=== PATIENT | female | born 1995 | race Asian ===

== ENCOUNTER 2023-12-01 17:31 | Observation (INO) ==
--- NOTE | 2023-12-01 17:44 | Emergency Department Note ---
Impression & Plan SVT (supraventricular tachycardia), Hypokalemia, Hypomagnesemia, Fever, Elevated troponin I level, Pyelonephritis ED Provider Note NAME: EDY GRIFFIN AGE: 28 SEX: F : 1995 ARRIVES VIA: Ambulance INFORMANT: Patient, EMS ED PROVIDER(S): Dg Crowley DO CHIEF COMPLAINT: Palpitations HPI: The patient is a 28-year-old female who presented to the emergency department by ambulance for an evaluation of palpitations and shortness of breath. The patient had an acute onset of palpitations. She arrived via ambulance. She reportedly had a pulse rate in the 170s. She was treated with adenosine. She then started having a pulse rate in the 140s and felt significantly improved. At this time the patient states she still feels that her heart is racing but she denies having any chest pain. She denies having any lower extremity swelling or pain. She denies having any abdominal pain. The patient has not been ill recently. She has had no fever nausea vomiting or diarrhea. She has no history of SVT in the past. ROS: See above HPI for pertinent positives & negatives. A total of 10 systems reviewed and were otherwise negative. PAST MEDICAL HISTORY: See Below PAST SURGICAL HISTORY: See Below FAMILY HISTORY: See Below SOCIAL HISTORY: See Below HOME MEDICATIONS: See Below ALLERGIES: See Below VITALS: See Below PHYSICAL EXAMINATION: GENERAL: Patient is awake alert in no acute distress patient is resting comfortably and showing no signs of anxiety EYES: The conjunctivae are clear. The pupils are round and reactive. EARS, NOSE, MOUTH AND THROAT: The nose is without any evidence of any deformity. NECK: The neck is nontender and supple. RESPIRATORY: Normal respiratory effort is noted there is no evidence of wheezing rhonchi or rales CARDIOVASCULAR: Tachycardic but regular heart sounds were noted to auscultation. There is no definite murmur. GASTROINTESTINAL: The abdomen is soft. Abdomen is nontender. MUSCULOSKELETAL/EXTREMITIES: There is no evidence of gross deformity full range of motion is noted in the hips and shoulders. SKIN: There is no obvious evidence of any rash. There are no petechiae, pallor or cyanosis noted. NEUROLOGIC: Patient is awake alert and oriented x3 strength is symmetric patellar reflexes are 2+ bilaterally MEDICAL DECISION MAKING: The patient is a 28-year-old female who presented to the emergency department for an evaluation of shortness of breath and palpitations. The patient had an acute onset of palpitations. She called 911. She was found to be in a narrow complex tachycardia at 170 bpm. She did receive adenosine prior to arrival. The patient was found to be in sinus tachycardia in the emergency department. She did complain of difficulty breathing. She was found to have a fever in the emergency department. Further laboratory and radiographic studies were obtained. The patient was treated with multiple IV fluid boluses. She was treated with IV antibiotics as well. She was found to have a slight elevation in her liver function studies. She was also found to have an elevated troponin as well as D-dimer. For this reason CT angiography of the chest was obtained. Given the patient's findings I [facility] have agreed to evaluate the patient in the emergency department for further management and disposition. Triage Nursing notes reviewed. Prior medical records reviewed Vital Signs: reviewed and remarkable for tachycardia and hypotension. The patient was also febrile. Differential diagnosis: Premature contractions, electrolyte abnormality, cardiac dysrhythmia, thyroid dysfunction, pulmonary embolism, infection, gastrointestinal, as well as other pathologies. ER treatment provided: See below Diagnostics interpreted by me: ECG: EKG was obtained in the emergency department. My interpretation is sinus tachycardia at 138 bpm. No PVCs were noted. Incomplete right bundle branch block pattern was noted. No previous tracing was available. Prehospital EKG was obtained in the emergency department. My interpretation is narrow complex tachycardia at 167 bpm. There were no PVCs noted. Nonspecific ST segment depressions were noted. Cardiac Monitoring: An order was placed for continuous cardiac monitoring. The monitor shows a rate of 130 bpm with sinus tachycardia. Laboratory studies: As stated above and show below. Imaging studies: See below. Radiographic imaging was reviewed by myself Consultation(s): I discussed this case with Dr. Tam who [facility] Past Med/Surg History Problem List (Updated 12/02/23 @ 08:20 by Dg Crowley DO) Pyelonephritis (Acute) Severe sepsis Elevated troponin I level (Acute) Fever (Acute) Hypomagnesemia (Acute) Hypokalemia (Acute) SVT (supraventricular tachycardia) (Acute) Social History (Reviewed 12/01/23 @ 17:42 by NENO Bruce Smoking Status: Never smoker Hx Alcohol Use: Yes Alcohol type: wine Hx Substance Use: No Preferred Language: Italian Communication Ability: Effective Advertising Assistant Required: No Beliefs That Will Affect Care: None Current Living Situation: Other Current Living Situation Comment: lives w/ roomates Feels Safe at Home: Yes Safety Concerns: Feels Safe At This Time Assistive Devices: None Allergies Allergies Allergy/AdvReac Type Severity Reaction Status Date / Time shellfish derived Allergy Severe Anaphylaxis Verified 12/01/23 19:16 Home Meds Home Medications Medication Instructions Recorded Confirmed Zinc Liquid 1 dose PO DAILY 12/01/23 12/01/23 acetaminophen 500 mg tablet 500 mg PO Q6H PRN PAIN/FEVER 12/01/23 12/01/23 (Tylenol Extra Strength) ibuprofen 200 mg tablet 400 mg PO Q6H PRN PAIN/FEVER 12/01/23 12/01/23 vitamin B complex 1 tab PO DAILY 12/01/23 12/01/23 Results & Data (ED) Vital Signs Vital Signs - 24 hr 12/01/23 17:34 12/01/23 17:38 12/01/23 17:38 Temperature 38.3 C H Temperature Source Oral Pulse Rate 142 H Pulse Rate [Apical] Pulse Rate from SpO2 Sensor Pulse Rhythm Regular Pulse Rhythm [Apical] Pulse Strength Normal Pulse Strength [Apical] Respiratory Rate 22 Respiratory Effort / Characteristics Non-Labored Spontaneous Non-Labored Spontaneous Respiratory Depth Normal Normal Respiratory Pattern Regular Regular Blood Pressure 94/65 L 94/65 L Blood Pressure [Right Arm] Blood Pressure Mean 71 74 Blood Pressure Mean [Right Arm] Blood Pressure Position Sitting Blood Pressure Position [Right Arm] Pulse Oximetry 97 Oxygen Delivery Method Room Air Room Air Sepsis Recent Fever Within 48 Hours Yes Sepsis New/Unexplained Change in Mental Status No Sepsis Action Taken by Nursing Physician Notified 12/01/23 17:38 12/01/23 17:38 12/01/23 17:39 Temperature Temperature Source Pulse Rate 130 H Pulse Rate [Apical] 126 H Pulse Rate from SpO2 Sensor Pulse Rhythm Pulse Rhythm [Apical] Regular Pulse Strength Pulse Strength [Apical] Normal Respiratory Rate 22 Respiratory Effort / Characteristics Non-Labored Spontaneous Respiratory Depth Normal Respiratory Pattern Regular Blood Pressure Blood Pressure [Right Arm] Blood Pressure Mean Blood Pressure Mean [Right Arm] Blood Pressure Position Blood Pressure Position [Right Arm] Pulse Oximetry 97 97 Oxygen Delivery Method Room Air Room Air Sepsis Recent Fever Within 48 Hours Sepsis New/Unexplained Change in Mental Status Sepsis Action Taken by Nursing 12/01/23 17:51 12/01/23 17:54 12/01/23 17:54 Temperature Temperature Source Pulse Rate 126 H Pulse Rate [Apical] Pulse Rate from SpO2 Sensor 127 H Pulse Rhythm Pulse Rhythm [Apical] Pulse Strength Pulse Strength [Apical] Respiratory Rate 24 Respiratory Effort / Characteristics Respiratory Depth Respiratory Pattern Blood Pressure 94/59 L 94/59 L Blood Pressure [Right Arm] Blood Pressure Mean 62 62 Blood Pressure Mean [Right Arm] Blood Pressure Position Blood Pressure Position [Right Arm] Pulse Oximetry 99 Oxygen Delivery Method Sepsis Recent Fever Within 48 Hours Sepsis New/Unexplained Change in Mental Status Sepsis Action Taken by Nursing 12/01/23 17:54 12/01/23 17:54 12/01/23 17:57 Temperature Temperature Source Pulse Rate 129 H 123 H Pulse Rate [Apical] Pulse Rate from SpO2 Sensor 128 H 125 H Pulse Rhythm Pulse Rhythm [Apical] Pulse Strength Pulse Strength [Apical] Respiratory Rate 24 22 Respiratory Effort / Characteristics Respiratory Depth Respiratory Pattern Blood Pressure 94/59 L Blood Pressure [Right Arm] Blood Pressure Mean 62 Blood Pressure Mean [Right Arm] Blood Pressure Position Blood Pressure Position [Right Arm] Pulse Oximetry 99 98 Oxygen Delivery Method Sepsis Recent Fever Within 48 Hours Sepsis New/Unexplained Change in Mental Status Sepsis Action Taken by Nursing 12/01/23 18:00 12/01/23 18:00 12/01/23 18:00 Temperature Temperature Source Pulse Rate Pulse Rate [Apical] Pulse Rate from SpO2 Sensor Pulse Rhythm Pulse Rhythm [Apical] Pulse Strength Pulse Strength [Apical] Respiratory Rate Respiratory Effort / Characteristics Respiratory Depth Respiratory Pattern Blood Pressure 97/56 L 97/56 L 97/56 L Blood Pressure [Right Arm] Blood Pressure Mean 70 70 70 Blood Pressure Mean [Right Arm] Blood Pressure Position Blood Pressure Position [Right Arm] Pulse Oximetry Oxygen Delivery Method Sepsis Recent Fever Within 48 Hours Sepsis New/Unexplained Change in Mental Status Sepsis Action Taken by Nursing 12/01/23 18:06 12/01/23 18:09 12/01/23 18:10 Temperature Temperature Source Pulse Rate 120 H 119 H Pulse Rate [Apical] Pulse Rate from SpO2 Sensor 122 H 119 H Pulse Rhythm Pulse Rhythm [Apical] Pulse Strength Pulse Strength [Apical] Respiratory Rate 20 22 Respiratory Effort / Characteristics Respiratory Depth Respiratory Pattern Blood Pressure 90/58 L Blood Pressure [Right Arm] Blood Pressure Mean 66 Blood Pressure Mean [Right Arm] Blood Pressure Position Blood Pressure Position [Right Arm] Pulse Oximetry 98 97 Oxygen Delivery Method Sepsis Recent Fever Within 48 Hours Sepsis New/Unexplained Change in Mental Status Sepsis Action Taken by Nursing 12/01/23 18:10 12/01/23 18:10 12/01/23 18:16 Temperature Temperature Source Pulse Rate Pulse Rate [Apical] Pulse Rate from SpO2 Sensor Pulse Rhythm Pulse Rhythm [Apical] Pulse Strength Pulse Strength [Apical] Respiratory Rate Respiratory Effort / Characteristics Respiratory Depth Respiratory Pattern Blood Pressure 90/58 L 90/58 L 108/56 L Blood Pressure [Right Arm] Blood Pressure Mean 66 66 79 Blood Pressure Mean [Right Arm] Blood Pressure Position Blood Pressure Position [Right Arm] Pulse Oximetry Oxygen Delivery Method Sepsis Recent Fever Within 48 Hours Sepsis New/Unexplained Change in Mental Status Sepsis Action Taken by Nursing 12/01/23 18:18 12/01/23 18:27 12/01/23 18:50 Temperature Temperature Source Pulse Rate 132 H 117 H Pulse Rate [Apical] Pulse Rate from SpO2 Sensor 131 H Pulse Rhythm Pulse Rhythm [Apical] Pulse Strength Pulse Strength [Apical] Respiratory Rate 28 H 18 Respiratory Effort / Characteristics Respiratory Depth Respiratory Pattern Blood Pressure 102/68 Blood Pressure [Right Arm] Blood Pressure Mean 74 Blood Pressure Mean [Right Arm] Blood Pressure Position Blood Pressure Position [Right Arm] Pulse Oximetry 100 Oxygen Delivery Method Sepsis Recent Fever Within 48 Hours Sepsis New/Unexplained Change in Mental Status Sepsis Action Taken by Nursing 12/01/23 19:00 12/01/23 19:03 12/01/23 19:09 Temperature Temperature Source Pulse Rate 118 H 114 H Pulse Rate [Apical] Pulse Rate from SpO2 Sensor 119 H Pulse Rhythm Pulse Rhythm [Apical] Pulse Strength Pulse Strength [Apical] Respiratory Rate 23 24 Respiratory Effort / Characteristics Respiratory Depth Respiratory Pattern Blood Pressure 88/56 L Blood Pressure [Right Arm] Blood Pressure Mean 63 Blood Pressure Mean [Right Arm] Blood Pressure Position Blood Pressure Position [Right Arm] Pulse Oximetry 98 Oxygen Delivery Method Sepsis Recent Fever Within 48 Hours Sepsis New/Unexplained Change in Mental Status Sepsis Action Taken by Nursing 12/01/23 19:10 12/01/23 19:10 12/01/23 19:10 Temperature Temperature Source Pulse Rate Pulse Rate [Apical] Pulse Rate from SpO2 Sensor Pulse Rhythm Pulse Rhythm [Apical] Pulse Strength Pulse Strength [Apical] Respiratory Rate Respiratory Effort / Characteristics Respiratory Depth Respiratory Pattern Blood Pressure 109/61 109/61 109/61 Blood Pressure [Right Arm] Blood Pressure Mean 69 69 69 Blood Pressure Mean [Right Arm] Blood Pressure Position Blood Pressure Position [Right Arm] Pulse Oximetry Oxygen Delivery Method Sepsis Recent Fever Within 48 Hours Sepsis New/Unexplained Change in Mental Status Sepsis Action Taken by Nursing 12/01/23 19:12 12/01/23 19:18 12/01/23 19:20 Temperature Temperature Source Pulse Rate 129 H 114 H Pulse Rate [Apical] Pulse Rate from SpO2 Sensor Pulse Rhythm Pulse Rhythm [Apical] Pulse Strength Pulse Strength [Apical] Respiratory Rate 25 H 27 H Respiratory Effort / Characteristics Respiratory Depth Respiratory Pattern Blood Pressure 89/57 L Blood Pressure [Right Arm] Blood Pressure Mean 70 Blood Pressure Mean [Right Arm] Blood Pressure Position Blood Pressure Position [Right Arm] Pulse Oximetry Oxygen Delivery Method Sepsis Recent Fever Within 48 Hours Sepsis New/Unexplained Change in Mental Status Sepsis Action Taken by Nursing 12/01/23 19:21 12/01/23 19:25 12/01/23 20:26 Temperature 36.8 C Temperature Source Oral Pulse Rate 115 H Pulse Rate [Apical] 111 H Pulse Rate from SpO2 Sensor 114 H Pulse Rhythm Pulse Rhythm [Apical] Regular Pulse Strength Pulse Strength [Apical] Normal Respiratory Rate 24 18 Respiratory Effort / Characteristics Non-Labored Spontaneous Respiratory Depth Normal Respiratory Pattern Regular Blood Pressure Blood Pressure [Right Arm] 89/57 L Blood Pressure Mean Blood Pressure Mean [Right Arm] 67 Blood Pressure Position Blood Pressure Position [Right Arm] Sitting Pulse Oximetry 99 98 Oxygen Delivery Method Room Air Sepsis Recent Fever Within 48 Hours Sepsis New/Unexplained Change in Mental Status Sepsis Action Taken by Nursing 12/01/23 21:00 12/01/23 21:29 12/01/23 23:00 Temperature Temperature Source Pulse Rate 101 H Pulse Rate [Apical] 104 H 88 Pulse Rate from SpO2 Sensor Pulse Rhythm Pulse Rhythm [Apical] Regular Regular Pulse Strength Pulse Strength [Apical] Normal Normal Respiratory Rate 18 16 Respiratory Effort / Characteristics Non-Labored Spontaneous Non-Labored Spontaneous Respiratory Depth Normal Normal Respiratory Pattern Regular Regular Blood Pressure Blood Pressure [Right Arm] 96/67 L 82/58 L Blood Pressure Mean Blood Pressure Mean [Right Arm] 76 66 Blood Pressure Position Blood Pressure Position [Right Arm] Lying Pulse Oximetry 96 99 Oxygen Delivery Method Room Air Room Air Sepsis Recent Fever Within 48 Hours Sepsis New/Unexplained Change in Mental Status Sepsis Action Taken by Residential Medications Current Medication List: was personally reviewed by me Laboratory Data Attestation: I reviewed the patient's lab results. 12/02/23 05:47 12/02/23 05:47 Lab Results 12/01/23 12/01/23 12/01/23 Range/Units 17:40 17:56 18:12 WBC 9.21 (4.8-10.8) K/ul RBC 4.13 L (4.20-5.40) M/uL Hgb 12.3 (12.0-16.0) g/dl Hct 36.4 L (37.0-47.0) % MCV 88.1 (80.0-100.0) fL MCH 29.8 (25.0-34.0) pg MCHC 33.8 (32.0-36.0) g/dL RDW Std Deviation 42.3 (36.4-46.3) fL RDW Coeff of Katerina 13.1 (11.5-14.5) % Plt Count 238 (130-400) K/uL MPV 8.7 L (9.4-12.4) fL Immature Gran % (Auto) 0.7 % Neut % (Auto) 91.8 % Lymph % (Auto) 6.3 % Wirt % (Auto) 0.8 % Eos % (Auto) 0.1 % Baso % (Auto) 0.3 % Neut # (Auto) 8.46 H (1.40-6.50) K/uL Lymph # (Auto) 0.58 L (1.20-3.40) K/uL Wirt # (Auto) 0.07 L (0.11-0.59) K/uL Eos # (Auto) 0.01 (0.00-0.50) K/uL Baso # (Auto) 0.03 (0.00-0.20) K/uL Immature Gran # (Auto) 0.06 (0.01-0.20) K/uL Toxic Vacuolation 2+ PT 11.0 (9.0-12.0) Seconds INR 1.0 (0.9-1.1) APTT 23 (21-31) Seconds PTT Ratio 0.9 D-Dimer 3870 H* (0-500) ug/L FEU Sodium 132 L (136-145) mmol/L Potassium 3.4 L (3.5-5.1) mmol/L Chloride 103 (98-107) mmol/L Carbon Dioxide 20 L (21-32) mmol/L Anion Gap 9 (3-11) BUN 14 (6-23) mg/dl Creatinine 0.80 (0.6-1.2) mg/dl Est Cr Clr Drug Dosing 81.3 ml/min Est GFR ( Amer) 114.7 ml/min Est GFR (Non-Af Amer) 98.9 ml/min BUN/Creatinine Ratio 17.5 (10-20) Glucose 131 H (70-99(Fasting)) mg/dl Estimat Average Glucose mg/dl Hemoglobin A1c (4.5-5.6) % Lactate (0.4-2.0) mmol/L Calcium 8.9 (8.6-10.3) mg/dl Magnesium 1.4 L (1.7-2.4) mg/dl Total Bilirubin 0.5 (0.2-1.0) mg/dl AST 180 H (13-39) U/L ALT 100 H (7-52) U/L Alkaline Phosphatase 107 H (34-104) U/L Total Creatine Kinase 62 (26-192) U/L Troponin I High Sens 65.3 H* (0-14) pg/ml C-Reactive Protein 3.14 H (0-0.5) mg/dl Total Protein 7.0 (6.0-8.3) gm/dl Albumin 3.9 (3.4-5.0) gm/dl Globulin 3.1 (2.5-4.0) gm/dl Albumin/Globulin Ratio 1.3 (0.9-2) Lipase 45 (11-82) U/L Procalcitonin 2.51 H (0-0.5) ng/ml TSH 0.961 (0.300-4.500) uIu/ml HCG, Qual Negative (Negative) Urine Color Yellow Urine Appearance Turbid A (Clear) Urine pH 5.5 (4.5-7.5) Ur Specific [place] 1.014 (1.000-1.030) Urine Protein 1+ H (Negative) Urine Glucose (UA) Negative (Negative) Urine Ketones Trace H (Negative) Urine Blood Negative (Negative) Urine Nitrite Positive A (Negative) Urine Bilirubin Negative (Negative) Urine Urobilinogen Negative (Negative) Ur Leukocyte Esterase 3+ H (Negative) Urine WBC (Auto) >50 H (0-5) /hpf Urine RBC (Auto) 0-2 (0-2) /hpf U Hyaline Cast (Auto) 3-5 H (0-2) /lpf U Epithel Cells (Auto) >20 H (0-2) /hpf Urine Bacteria (Auto) 4+ H (None Seen) Adenovirus (PCR) Not Detected (NotDetected) Anaplasma Smear See Comment Babesia Smear See Comment B. pertussis DNA (PCR) Not Detected (NotDetected) B.parapertussis DNA PCR Not Detected (NotDetected) Lyme Disease Screen Negative (Negative) C. pneumoniae DNA (PCR) Not Detected (NotDetected) Coronavirus OC43 (PCR) Not Detected (NotDetected) Coronavirus HKU1 (PCR) Not Detected (NotDetected) Coronavirus 229E (PCR) Not Detected (NotDetected) SARS-CoV-2 (PCR) Not Detected (NotDetected) Coronavirus NL63 (PCR) Not Detected (NotDetected) Enterobacterales (PCR) (NotDetected) E. coli (PCR) (NotDetected) Human Metapneumovir PCR Not Detected (NotDetected) Influenza Type A (PCR) Not Detected (NotDetected) Influenza Type B (PCR) Not Detected (NotDetected) M. pneumoniae (PCR) Not Detected (NotDetected) Parainfluenza 1 (PCR) Not Detected (NotDetected) Parainfluenza 2 (PCR) Not Detected (NotDetected) Parainfluenza 3 (PCR) Not Detected (NotDetected) Parainfluenza 4 (PCR) Not Detected (NotDetected) RSV (PCR) Not Detected (NotDetected) Entero/Rhino (PCR) Not Detected (NotDetected) mcr-1 Colistin Res Gene PCR (NotDetected) blaIMP Car res Gene PCR (NotDetected) KPC-Carbap Res Gene PCR (NotDetected) blaNDM Car Res Gene PCR (NotDetected) OXA-48 Carbapenem Resis Gene (PCR) (NotDetected) blaVIM Car Res Gene PCR (NotDetected) CTX-M Gene Resistance (PCR) (NotDetected) Bld Cult ID Panel PCR (NotDetected) 12/01/23 12/01/23 12/01/23 Range/Units 19:04 19:10 20:57 WBC (4.8-10.8) K/ul RBC (4.20-5.40) M/uL Hgb (12.0-16.0) g/dl Hct (37.0-47.0) % MCV (80.0-100.0) fL MCH (25.0-34.0) pg MCHC (32.0-36.0) g/dL RDW Std Deviation (36.4-46.3) fL RDW Coeff of Katerina (11.5-14.5) % Plt Count (130-400) K/uL MPV (9.4-12.4) fL Immature Gran % (Auto) % Neut % (Auto) % Lymph % (Auto) % Wirt % (Auto) % Eos % (Auto) % Baso % (Auto) % Neut # (Auto) (1.40-6.50) K/uL Lymph # (Auto) (1.20-3.40) K/uL Wirt # (Auto) (0.11-0.59) K/uL Eos # (Auto) (0.00-0.50) K/uL Baso # (Auto) (0.00-0.20) K/uL Immature Gran # (Auto) (0.01-0.20) K/uL Toxic Vacuolation PT (9.0-12.0) Seconds INR (0.9-1.1) APTT (21-31) Seconds PTT Ratio D-Dimer (0-500) ug/L FEU Sodium (136-145) mmol/L Potassium (3.5-5.1) mmol/L Chloride (98-107) mmol/L Carbon Dioxide (21-32) mmol/L Anion Gap (3-11) BUN (6-23) mg/dl Creatinine (0.6-1.2) mg/dl Est Cr Clr Drug Dosing ml/min Est GFR ( Amer) ml/min Est GFR (Non-Af Amer) ml/min BUN/Creatinine Ratio (10-20) Glucose (70-99(Fasting)) mg/dl Estimat Average Glucose 117 mg/dl Hemoglobin A1c 5.7 H (4.5-5.6) % Lactate 3.0 H* 1.8 (0.4-2.0) mmol/L Calcium (8.6-10.3) mg/dl Magnesium (1.7-2.4) mg/dl Total Bilirubin (0.2-1.0) mg/dl AST (13-39) U/L ALT (7-52) U/L Alkaline Phosphatase (34-104) U/L Total Creatine Kinase (26-192) U/L Troponin I High Sens 131.9 H* D (0-14) pg/ml C-Reactive Protein (0-0.5) mg/dl Total Protein (6.0-8.3) gm/dl Albumin (3.4-5.0) gm/dl Globulin (2.5-4.0) gm/dl Albumin/Globulin Ratio (0.9-2) Lipase (11-82) U/L Procalcitonin (0-0.5) ng/ml TSH (0.300-4.500) uIu/ml HCG, Qual (Negative) Urine Color Urine Appearance (Clear) Urine pH (4.5-7.5) Ur Specific [place] (1.000-1.030) Urine Protein (Negative) Urine Glucose (UA) (Negative) Urine Ketones (Negative) Urine Blood (Negative) Urine Nitrite (Negative) Urine Bilirubin (Negative) Urine Urobilinogen (Negative) Ur Leukocyte Esterase (Negative) Urine WBC (Auto) (0-5) /hpf Urine RBC (Auto) (0-2) /hpf U Hyaline Cast (Auto) (0-2) /lpf U Epithel Cells (Auto) (0-2) /hpf Urine Bacteria (Auto) (None Seen) Adenovirus (PCR) (NotDetected) Anaplasma Smear Babesia Smear B. pertussis DNA (PCR) (NotDetected) B.parapertussis DNA PCR (NotDetected) Lyme Disease Screen (Negative) C. pneumoniae DNA (PCR) (NotDetected) Coronavirus OC43 (PCR) (NotDetected) Coronavirus HKU1 (PCR) (NotDetected) Coronavirus 229E (PCR) (NotDetected) SARS-CoV-2 (PCR) (NotDetected) Coronavirus NL63 (PCR) (NotDetected) Enterobacterales (PCR) DETECTED A (NotDetected) E. coli (PCR) DETECTED A (NotDetected) Human Metapneumovir PCR (NotDetected) Influenza Type A (PCR) (NotDetected) Influenza Type B (PCR) (NotDetected) M. pneumoniae (PCR) (NotDetected) Parainfluenza 1 (PCR) (NotDetected) Parainfluenza 2 (PCR) (NotDetected) Parainfluenza 3 (PCR) (NotDetected) Parainfluenza 4 (PCR) (NotDetected) RSV (PCR) (NotDetected) Entero/Rhino (PCR) (NotDetected) mcr-1 Colistin Res Gene PCR Not Detected (NotDetected) blaIMP Car res Gene PCR Not Detected (NotDetected) KPC-Carbap Res Gene PCR Not Detected (NotDetected) blaNDM Car Res Gene PCR Not Detected (NotDetected) OXA-48 Carbapenem Resis Gene (PCR) Not Detected (NotDetected) blaVIM Car Res Gene PCR Not Detected (NotDetected) CTX-M Gene Resistance (PCR) Not Detected (NotDetected) Bld Cult ID Panel PCR See PCR Comment (NotDetected) Administered Medications Ciprofloxacin (Cipro / D5w) 400 mg in 200 mls @ 100 mls/hr IV Q12H MARZENA; Protocol Stop: 12/12/23 04:59 Last Admin: 12/02/23 05:44 Dose: 100 mls/hr Documented By: MMИван Potassium Chloride/Sodium Chloride (Normal Saline W/20 Meq Kcl) 20 meq in 1,000 mls @ 150 mls/hr IV .Q6H40M ONE; Protocol Stop: 12/02/23 12:39 Last Admin: 12/02/23 05:34 Dose: 100 mls/hr Documented By: BEVERLY Ketorolac Tromethamine (Ketorolac Tromethamine 15 Mg/Ml Vial) 15 mg IV Q6H PRN PRN Reason: Pain Stop: 12/06/23 22:20 Last Admin: 12/02/23 05:39 Dose: 15 mg Documented By: MMG Discontinued Medications Acetaminophen (Acetaminophen 500 Mg Tab) 500 mg PO NOW STA Stop: 12/01/23 19:21 Last Admin: 12/01/23 19:38 Dose: 500 mg Documented By: SNS Sodium Chloride (Nss) 1,000 mls @ 999 mls/hr IV .Q1H1M STA Stop: 12/01/23 18:38 Last Infusion: 12/01/23 18:48 Dose: Infused Documented By: Admin: 12/01/23 17:47 Dose: 999 mls/hr Documented By: SNS Magnesium Sulfate/Dextrose (Magnesium Sulfate / D5w) 1 gm in 100 mls @ 100 mls/hr IV NOW STA Stop: 12/01/23 19:11 Last Infusion: 12/01/23 19:28 Dose: Infused Documented By: Admin: 12/01/23 18:23 Dose: 100 mls/hr Documented By: SNS Sodium Chloride (Nss) 1,000 mls @ 999 mls/hr IV .Q1H1M ONE Stop: 12/01/23 19:31 Last Infusion: 12/01/23 19:51 Dose: Infused Documented By: Admin: 12/01/23 18:47 Dose: 999 mls/hr Documented By: SNS Ceftriaxone Sodium (Rocephin) 2,000 mg in 50 mls @ 100 mls/hr IV NOW STA Stop: 12/01/23 19:24 Last Infusion: 12/01/23 19:51 Dose: Infused Documented By: Admin: 12/01/23 19:16 Dose: 100 mls/hr Documented By: SNS Magnesium Sulfate/Dextrose (Magnesium Sulfate / D5w) 1 gm in 100 mls @ 50 mls/hr IV ONE ONE Stop: 12/01/23 21:59 Last Infusion: 12/01/23 22:11 Dose: Infused Documented By: Admin: 12/01/23 20:08 Dose: 50 mls/hr Documented By: SNS Potassium Chloride/Sodium Chloride (Normal Saline W/20 Meq Kcl) 20 meq in 1,000 mls @ 500 mls/hr IV .Q2H ONE; Protocol Stop: 12/01/23 21:59 Last Infusion: 12/01/23 22:11 Dose: Infused Documented By: Admin: 12/01/23 20:06 Dose: 500 mls/hr Documented By: SNS Piperacillin Sod/Tazobactam Sod (Zosyn) 4.5 gm in 100 mls @ 200 mls/hr IV NOW ONE Stop: 12/01/23 20:44 Last Infusion: 12/01/23 21:37 Dose: Infused Documented By: Admin: 12/01/23 21:07 Dose: 200 mls/hr Documented By: COOPER Potassium Chloride/Sodium Chloride (Normal Saline W/20 Meq Kcl) 20 meq in 1,000 mls @ 100 mls/hr IV .Q10H ONE; Protocol Stop: 12/02/23 05:59 Last Admin: 12/01/23 22:06 Dose: 100 mls/hr Documented By: COOPER Ioversol (Optiray 320 125ml) 118 ml IV ONCE ONE Stop: 12/01/23 18:38 Last Admin: 12/01/23 18:38 Dose: 118 ml Documented By: ILA Ketorolac Tromethamine (Ketorolac Tromethamine 15 Mg/Ml Vial) 10 mg IV NOW ONE Stop: 12/01/23 18:29 Last Admin: 12/01/23 18:30 Dose: 10 mg Documented By: COOPER Ketorolac Tromethamine (Ketorolac Tromethamine 15 Mg/Ml Vial) 15 mg IV NOW ONE Stop: 12/02/23 05:51 Last Admin: 12/02/23 06:03 Dose: Not Given Documented By: BEVERLY Melatonin (Melatonin 3 Mg Tab) 3 mg PO HS PRN PRN Reason: Sleep Stop: 01/01/24 01:46 Last Admin: 12/02/23 02:16 Dose: 3 mg Documented By: BEVERLY Potassium Chloride (Potassium Chloride 10 Meq Tabcr) 10 meq PO NOW STA Stop: 12/01/23 18:12 Last Admin: 12/01/23 18:23 Dose: 10 meq Documented By: COOPER Potassium Chloride (Potassium Chloride Crtab 20 Meq Tabcr) 40 meq PO NOW STA Stop: 12/01/23 19:27 Last Admin: 12/01/23 20:05 Dose: 40 meq Documented By: COOPER Imaging Data Attestation: I personally reviewed and interpreted this imaging study as follows: My Impression: CT angiography of the chest was obtained in the emergency department. My interpretation is no free air or definite infiltrate, final report below Radiologist's Impression: Abdomen/Pelvis CT 12/01/23 19:59 Exam(s): CT ABDOMEN + PELVIS Without Contrast EXAM: CT Abdomen and Pelvis Without Intravenous Contrast CLINICAL HISTORY: Pain. TECHNIQUE: Axial computed tomography images of the abdomen and pelvis without intravenous contrast. CTDI is 12.41 mGy and DLP is 594 mGy-cm. Automated exposure control was utilized for the study. A dose lowering technique was utilized adhering to the principles of ALARA. COMPARISON: No relevant prior studies available. FINDINGS: Lung bases: Unremarkable. No mass. No consolidation. ABDOMEN: Liver: Unremarkable. Gallbladder and bile ducts: The gallbladder is decompressed. No calcified stones. No ductal dilation. Pancreas: Unremarkable. No ductal dilation. Spleen: Unremarkable. No splenomegaly. Adrenals: Unremarkable. No mass. Kidneys and ureters: There are persistent nephrograms of the right kidney which demonstrates mild hydronephrosis. Left kidney is unremarkable. Stomach and bowel: Unremarkable. No obstruction. No mucosal thickening. PELVIS: Appendix: No findings to suggest acute appendicitis. Bladder: Unremarkable. No stones. Reproductive: Unremarkable as visualized. ABDOMEN and PELVIS: Intraperitoneal space: Unremarkable. No free air. No significant fluid collection. Bones/joints: No acute fracture. No dislocation. Soft tissues: Unremarkable. Vasculature: Unremarkable. No abdominal aortic aneurysm. Lymph nodes: Unremarkable. No enlarged lymph nodes. IMPRESSION: There are persistent nephrograms of the right kidney which demonstrates mild hydronephrosis. This is concerning for acute pyelonephritis. Electronically signed by: Jennifer Cantor MD 12/02/23 00:20 AM Discharge Plan Visit Data Chief Complaint: Shortness of Breath/Dyspnea Stated Complaint: SOB ED Provider: Dg Crowley Discharge Problem: SVT (supraventricular tachycardia), Hypokalemia, Hypomagnesemia, Fever, Elevated troponin I level, Pyelonephritis Patient Disposition: Admitted As Inpatient Discharge Instructions Interventions: ED Discharge Assessment Last Done: 12/02/23 01:07 Discharge Problem: Fever Qualifiers: Fever type: unspecified Qualified Code(s): R50.9 - Fever, unspecified
[2023-12-01] MEDS: SODIUM CHLORIDE 0.9% 1,000 ML IV STA (17:47)
[2023-12-01 17:54] LABS: Hematocrit (blood only) 36.4 % (37.0-47.0); Hemoglobin 12.3 g/dl (12.0-16.0); Mean Corpuscular Hemoglobin 29.8 pg (25.0-34.0); Mean Corpuscular Hgb Conc 33.8 g/dL (32.0-36.0); Mean Corpuscular Volume 88.1 fL (80.0-100.0); Mean Platelet Volume 8.7 fL (9.4-12.4); Platelet Count 238 K/uL (130-400); RDW Coefficient of Variation 13.1 % (11.5-14.5); RDW Standard Deviation 42.3 fL (36.4-46.3); Red Blood Count 4.13 M/uL (4.20-5.40); White Blood Count 9.21 K/ul (4.8-10.8)
[2023-12-01 18:10] LABS: Albumin Globulin Ratio 1.3 (0.9-2); Albumin Level 3.9 gm/dl (3.4-5.0); BUN Creatinine Ratio 17.5 (10-20); Bilirubin,Total 0.5 mg/dl (0.2-1.0); Calcium 8.9 mg/dl (8.6-10.3); Creatinine Clr Calc Pharmacy 81.3 ml/min; Est GFR (African American) 114.7 ml/min; Est GFR (Non-African American) 98.9 ml/min; Globulin 3.1 gm/dl (2.5-4.0); Magnesium 1.4 mg/dl (1.7-2.4); Potassium 3.4 mmol/L (3.5-5.1)
[2023-12-01 18:12] LABS: Pregnancy Test, Serum Negative (Negative)
[2023-12-01 18:13] LABS: Basophils # (auto) 0.03 K/uL (0.00-0.20); Basophils % (auto) 0.3 %; Eosinophils # (auto) 0.01 K/uL (0.00-0.50); Eosinophils % (auto) 0.1 %; Immature Granulocytes # (auto) 0.06 K/uL (0.01-0.20); Immature Granulocytes % (auto) 0.7 %; Lymphocytes # (auto) 0.58 K/uL (1.20-3.40); Lymphocytes % (auto) 6.3 %; Monocytes # (auto) 0.07 K/uL (0.11-0.59); Monocytes % (auto) 0.8 %; Neutrophils # (auto) 8.46 K/uL (1.40-6.50); Neutrophils % (auto) 91.8 %; Toxic Vacuolation 2+
[2023-12-01] MEDS: MAGNESIUM SULFATE / D5W 1 GM/100 ML BAG IV STA (18:23)
[2023-12-01] MEDS: POTASSIUM CHLORIDE 10 MEQ TABCR PO STA (18:23)
[2023-12-01 18:24] LABS: Partial Thromboplastin Ratio 0.9; Partial Thromboplastin Time 23 Seconds (21-31)
[2023-12-01 18:27] LABS: D Dimer 3870 ug/L FEU (0-500)
[2023-12-01 18:28] LABS: Thyroid Stimulating Hormone 0.961 uIu/ml (0.300-4.500)
[2023-12-01] MEDS: KETOROLAC TROMETHAMINE 15 MG/ML VIAL IV ONE (18:30)
[2023-12-01 18:31] LABS: Troponin I High Sensitivity 65.3 pg/ml (0-14)
[2023-12-01] MEDS: OPTIRAY 320 125ml IV ONE (18:38)
[2023-12-01] MEDS: SODIUM CHLORIDE 0.9% 1,000 ML IV ONE (18:47)
[2023-12-01 19:08] LABS: Appearance Urine Turbid (Clear); Bacteria Urine Automated 4+ (None Seen); Bilirubin Urine Negative (Negative); Blood Urine Negative (Negative); Color Urine Yellow; Epithelial Cell Urine Auto >20 /hpf (0-2); Glucose Urine UA Negative (Negative); Ketones Urine Trace (Negative); Leukocyte Esterase Urine 3+ (Negative); Nitrite Urine Positive (Negative); Protein Urine 1+ (Negative); RBC Urine Automated 0-2 /hpf (0-2); Specific Gravity Urine 1.014 (1.000-1.030); Urobilinogen Urine Negative (Negative); WBC Urine Automated >50 /hpf (0-5); pH Urine 5.5 (4.5-7.5)
--- NOTE | 2023-12-01 19:12 | CT Scan Report ---
CT angio chest PE protocol CLINICAL HISTORY: PE TECHNIQUE: Multidetector row helical CT of the chest was performed with angiographic protocol. Soto l and sagittal reformations were obtained. Coronal and sagittal MIPS were obtained from the axial jackson a set and were submitted for review. Automated dose lowering techniques and/or adjustment according to patient size were utilized for this exam. CT DOSE: 396.92 mGy.cm Comparison: None available at the time of this dictation. FINDINGS: Lungs and pleura: There is a 3 mm nodule in the right upper lobe (series 4 image 80). Heart and pericardium: Heart size is normal. No pericardial effusion. Vessels: Evaluation for pulmonary embolism is limited due to suboptimal contrast timing. No evidence of central, lobar, or segmental embolus. Mediastinum and reggie: Unremarkable. Chest wall and lower neck: Unremarkable. Abdomen: Unremarkable. Bones: Unremarkable. IMPRESSION: 1. No acute abnormality and in particular no evidence of pulmonary embolus. 2. Small pulmonary nodule in the right upper lobe. According to Fleischner criteria, no follow-up is required in low risk patients, in high-risk patients, a 12 month follow-up CT can be optionally perf ormed. ACT 112: Negative or not required by law. Electronically signed by: Sami Perez M.D. 12/01/2023 7:10 PM
[2023-12-01] MEDS: cefTRIAXone SODIUM 2,000 MG/50 ML BAG IV STA (19:16)
[2023-12-01 19:18] LABS: Procalcitonin 2.51 ng/ml (0-0.5)
[2023-12-01] MEDS: ACETAMINOPHEN 500 MG TAB PO STA (19:38)
[2023-12-01 19:43] LABS: Lyme Screen Rflx Confirmation Negative (Negative)
[2023-12-01] MEDS ORDERED: PIPERACILLIN/TAZOBACTAM 4.5 GM in DEXTROSE 5% MINI-B 100 ML IV ONE (19:59)
[2023-12-01] MEDS ORDERED: oxyCODONE HCL IR 5 MG TAB (IMMEDIATE RELEASE) PO PRN (20:03)
[2023-12-01] MEDS ORDERED: LORazepam 0.5 MG TAB PO PRN (20:03)
[2023-12-01] MEDS ORDERED: PROMETHAZINE HCL 6.25 MG in SODIUM CHLORIDE 0.9% 50 ML IV PRN (20:03)
[2023-12-01] MEDS: POTASSIUM CHLORIDE CRTAB 20 MEQ TABCR PO STA (20:05)
[2023-12-01] MEDS: NSS + 20MEQ KCL 20 MEQ/1,000 ML BAG IV ONE ×2 (20:06→22:06)
[2023-12-01] MEDS: MAGNESIUM SULFATE / D5W 1 GM/100 ML BAG IV ONE (20:08)
[2023-12-01 20:11] LABS: Adenovirus PCR Not Detected (NotDetected); Bordetella parapertussis PCR Not Detected (NotDetected); Bordetella pertussis PCR Not Detected (NotDetected); Chlamydia pneumoniae PCR Not Detected (NotDetected); Coronavirus 229E PCR Not Detected (NotDetected); Coronavirus CoV-2 (COVID19)PCR Not Detected (NotDetected); Coronavirus HKU1 PCR Not Detected (NotDetected); Coronavirus NL63 PCR Not Detected (NotDetected); Coronavirus OC43PCR Not Detected (NotDetected); Human Metapneumovirus PCR Not Detected (NotDetected); Influenza A PCR Not Detected (NotDetected); Influenza B PCR Not Detected (NotDetected); Mycoplasma pneumoniae PCR Not Detected (NotDetected); Parainfluenza Virus 1 PCR Not Detected (NotDetected); Parainfluenza Virus 2 PCR Not Detected (NotDetected); Parainfluenza Virus 3 PCR Not Detected (NotDetected); Parainfluenza Virus 4 PCR Not Detected (NotDetected); Respiratory Syncytial VirusPCR Not Detected (NotDetected); Rhinovirus/Enterovirus PCR Not Detected (NotDetected)
[2023-12-01] MEDS ORDERED: POTASSIUM CHLORIDE CRTAB 20 MEQ TABCR PO ONE (21:00)
[2023-12-01] MEDS: PIPERACILLIN/TAZOBACTAM 4.5 GM/100 ML BAG IV ONE (21:07)
[2023-12-01 21:35] LABS: C Reactive Protein 3.14 mg/dl (0-0.5)
[2023-12-01 21:52] LABS: Estimated Average Glucose 117 mg/dl; Hemoglobin A1C 5.7 % (4.5-5.6)
--- NOTE | 2023-12-01 22:43 | History & Physical Report ---
Date of Service December 01, 2023 History of Present Illness Chief Complaint: Palpitations, shortness of breath Primary Care Provider: NO PCP History obtained from patient and records. No significant medical history. Patient experienced right-sided flank discomfort today followed by dysuria. Dizziness described as lightheadedness. Palpitations with SOB. Denies chest pain or cough symptoms. EMS called to patient's home. Patient noted to be in SVT, heart rate 170s. Heart rate improved to 140s after adenosine administration. Patient brought to the ER for evaluation. Ceftriaxone administered at the ER. Medical History as above Surgical History : Family History : Personal/Social history : Allergies Allergy/AdvReac Type Severity Reaction Status Date / Time shellfish derived Allergy Severe Anaphylaxis Verified 12/01/23 19:16 Home Medications Medication Instructions Recorded Confirmed Type Zinc Liquid 1 dose PO DAILY 12/01/23 12/01/23 History acetaminophen 500 mg tablet 500 mg PO Q6H PRN PAIN/FEVER 12/01/23 12/01/23 History (Tylenol Extra Strength) ibuprofen 200 mg tablet 400 mg PO Q6H PRN PAIN/FEVER 12/01/23 12/01/23 History vitamin B complex 1 tab PO DAILY 12/01/23 12/01/23 History Past Med/Surg History Problem List (Updated 12/01/23 @ 19:21 by Dg Crowley DO) UTI (urinary tract infection) (Acute) Elevated troponin I level (Acute) Fever (Acute) Hypomagnesemia (Acute) Hypokalemia (Acute) SVT (supraventricular tachycardia) (Acute) Social History Smoking Status: Never smoker Preferred Language: [place] Feels Safe at Home: Yes Results & Data Results & Data Vital Signs (Past 12 Hours) Vital Signs Temp Pulse Pulse Resp BP BP Pulse Ox 12/01/23 21:29 101 H 12/01/23 21:00 104 H 18 96/67 L 96 12/01/23 20:26 36.8 C 12/01/23 19:25 111 H 18 89/57 L 98 12/01/23 19:21 115 H 24 99 12/01/23 19:20 89/57 L 12/01/23 19:18 114 H 27 H 12/01/23 19:12 129 H 25 H 12/01/23 19:10 109/61 12/01/23 19:10 109/61 12/01/23 19:10 109/61 12/01/23 19:09 114 H 24 12/01/23 19:03 118 H 23 98 12/01/23 19:00 88/56 L 12/01/23 18:50 102/68 12/01/23 18:27 117 H 18 12/01/23 18:18 132 H 28 H 100 12/01/23 18:16 108/56 L 12/01/23 18:10 90/58 L 12/01/23 18:10 90/58 L 12/01/23 18:10 90/58 L 12/01/23 18:09 119 H 22 97 12/01/23 18:06 120 H 20 98 12/01/23 18:00 97/56 L 12/01/23 18:00 97/56 L 12/01/23 18:00 97/56 L 12/01/23 17:57 123 H 22 98 12/01/23 17:54 129 H 24 99 12/01/23 17:54 94/59 L 12/01/23 17:54 94/59 L 12/01/23 17:54 94/59 L 12/01/23 17:51 126 H 24 99 12/01/23 17:39 130 H 12/01/23 17:38 126 H 22 97 12/01/23 17:38 97 12/01/23 17:38 12/01/23 17:38 38.3 C H 142 H 22 94/65 L 97 12/01/23 17:34 94/65 L O2 Del Method 12/01/23 21:29 12/01/23 21:00 Room Air 12/01/23 20:26 12/01/23 19:25 Room Air 12/01/23 19:21 12/01/23 19:20 12/01/23 19:18 12/01/23 19:12 12/01/23 19:10 12/01/23 19:10 12/01/23 19:10 12/01/23 19:09 12/01/23 19:03 12/01/23 19:00 12/01/23 18:50 12/01/23 18:27 12/01/23 18:18 12/01/23 18:16 12/01/23 18:10 12/01/23 18:10 12/01/23 18:10 12/01/23 18:09 12/01/23 18:06 12/01/23 18:00 12/01/23 18:00 12/01/23 18:00 12/01/23 17:57 12/01/23 17:54 12/01/23 17:54 12/01/23 17:54 12/01/23 17:54 12/01/23 17:51 12/01/23 17:39 12/01/23 17:38 Room Air 12/01/23 17:38 Room Air 12/01/23 17:38 Room Air 12/01/23 17:38 Room Air 12/01/23 17:34 Laboratory Results Laboratory Results WBC 9.21 K/ul (4.8-10.8) 12/01/23 17:40 RBC 4.13 M/uL (4.20-5.40) L 12/01/23 17:40 Hgb 12.3 g/dl (12.0-16.0) 12/01/23 17:40 Hct 36.4 % (37.0-47.0) L 12/01/23 17:40 MCV 88.1 fL (80.0-100.0) 12/01/23 17:40 MCH 29.8 pg (25.0-34.0) 12/01/23 17:40 MCHC 33.8 g/dL (32.0-36.0) 12/01/23 17:40 RDW Std Deviation 42.3 fL (36.4-46.3) 12/01/23 17:40 RDW Coeff of Katerina 13.1 % (11.5-14.5) 12/01/23 17:40 Plt Count 238 K/uL (130-400) 12/01/23 17:40 MPV 8.7 fL (9.4-12.4) L 12/01/23 17:40 Immature Gran % (Auto) 0.7 % 12/01/23 17:40 Neut % (Auto) 91.8 % 12/01/23 17:40 Lymph % (Auto) 6.3 % 12/01/23 17:40 [place] % (Auto) 0.8 % 12/01/23 17:40 Eos % (Auto) 0.1 % 12/01/23 17:40 Baso % (Auto) 0.3 % 12/01/23 17:40 Neut # (Auto) 8.46 K/uL (1.40-6.50) H 12/01/23 17:40 Lymph # (Auto) 0.58 K/uL (1.20-3.40) L 12/01/23 17:40 [place] # (Auto) 0.07 K/uL (0.11-0.59) L 12/01/23 17:40 Eos # (Auto) 0.01 K/uL (0.00-0.50) 12/01/23 17:40 Baso # (Auto) 0.03 K/uL (0.00-0.20) 12/01/23 17:40 Immature Gran # (Auto) 0.06 K/uL (0.01-0.20) 12/01/23 17:40 Toxic Vacuolation 2+ 12/01/23 17:40 PT 11.0 Seconds (9.0-12.0) 12/01/23 17:40 INR 1.0 (0.9-1.1) 12/01/23 17:40 APTT 23 Seconds (21-31) 12/01/23 17:40 PTT Ratio 0.9 12/01/23 17:40 D-Dimer 3870 ug/L FEU (0-500) H* 12/01/23 17:40 Sodium 132 mmol/L (136-145) L 12/01/23 17:40 Potassium 3.4 mmol/L (3.5-5.1) L 12/01/23 17:40 Chloride 103 mmol/L (98-107) 12/01/23 17:40 Carbon Dioxide 20 mmol/L (21-32) L 12/01/23 17:40 Anion Gap 9 (3-11) 12/01/23 17:40 BUN 14 mg/dl (6-23) 12/01/23 17:40 Creatinine 0.80 mg/dl (0.6-1.2) 12/01/23 17:40 Est Cr Clr Drug Dosing 81.3 ml/min 12/01/23 17:40 Est GFR ( Amer) 114.7 ml/min 12/01/23 17:40 Est GFR (Non-Af Amer) 98.9 ml/min 12/01/23 17:40 BUN/Creatinine Ratio 17.5 (10-20) 12/01/23 17:40 Glucose 131 mg/dl (70-99(Fasting)) H 12/01/23 17:40 Estimat Average Glucose 117 mg/dl 12/01/23 19:04 Hemoglobin A1c 5.7 % (4.5-5.6) H 12/01/23 19:04 Lactate 1.8 mmol/L (0.4-2.0) 12/01/23 20:57 Calcium 8.9 mg/dl (8.6-10.3) 12/01/23 17:40 Magnesium 1.4 mg/dl (1.7-2.4) L 12/01/23 17:40 Total Bilirubin 0.5 mg/dl (0.2-1.0) 12/01/23 17:40 AST 180 U/L (13-39) H 12/01/23 17:40 ALT 100 U/L (7-52) H 12/01/23 17:40 Alkaline Phosphatase 107 U/L (34-104) H 12/01/23 17:40 Total Creatine Kinase 62 U/L (26-192) 12/01/23 17:40 Troponin I High Sens 131.9 pg/ml (0-14) H* D 12/01/23 19:04 C-Reactive Protein 3.14 mg/dl (0-0.5) H 12/01/23 17:40 Total Protein 7.0 gm/dl (6.0-8.3) 12/01/23 17:40 Albumin 3.9 gm/dl (3.4-5.0) 12/01/23 17:40 Globulin 3.1 gm/dl (2.5-4.0) 12/01/23 17:40 Albumin/Globulin Ratio 1.3 (0.9-2) 12/01/23 17:40 Lipase 45 U/L (11-82) 12/01/23 17:40 Procalcitonin 2.51 ng/ml (0-0.5) H 12/01/23 17:40 TSH 0.961 uIu/ml (0.300-4.500) 12/01/23 17:40 HCG, Qual Negative (Negative) 12/01/23 17:40 Urine Color Yellow 12/01/23 18:12 Urine Appearance Turbid (Clear) A 12/01/23 18:12 Urine pH 5.5 (4.5-7.5) 12/01/23 18:12 Ur Specific [place] 1.014 (1.000-1.030) 12/01/23 18:12 Urine Protein 1+ (Negative) H 12/01/23 18:12 Urine Glucose (UA) Negative (Negative) 12/01/23 18:12 Urine Ketones Trace (Negative) H 12/01/23 18:12 Urine Blood Negative (Negative) 12/01/23 18:12 Urine Nitrite Positive (Negative) A 12/01/23 18:12 Urine Bilirubin Negative (Negative) 12/01/23 18:12 Urine Urobilinogen Negative (Negative) 12/01/23 18:12 Ur Leukocyte Esterase 3+ (Negative) H 12/01/23 18:12 Urine WBC (Auto) >50 /hpf (0-5) H 12/01/23 18:12 Urine RBC (Auto) 0-2 /hpf (0-2) 12/01/23 18:12 U Hyaline Cast (Auto) 3-5 /lpf (0-2) H 12/01/23 18:12 U Epithel Cells (Auto) >20 /hpf (0-2) H 12/01/23 18:12 Urine Bacteria (Auto) 4+ (None Seen) H 12/01/23 18:12 Adenovirus (PCR) Not Detected (NotDetected) 12/01/23 17:56 Anaplasma Smear See Comment 12/01/23 17:40 Babesia Smear See Comment 12/01/23 17:40 B. pertussis DNA (PCR) Not Detected (NotDetected) 12/01/23 17:56 B.parapertussis DNA PCR Not Detected (NotDetected) 12/01/23 17:56 Lyme Disease Screen Negative (Negative) 12/01/23 17:40 C. pneumoniae DNA (PCR) Not Detected (NotDetected) 12/01/23 17:56 Coronavirus OC43 (PCR) Not Detected (NotDetected) 12/01/23 17:56 Coronavirus HKU1 (PCR) Not Detected (NotDetected) 12/01/23 17:56 Coronavirus 229E (PCR) Not Detected (NotDetected) 12/01/23 17:56 SARS-CoV-2 (PCR) Not Detected (NotDetected) 12/01/23 17:56 Coronavirus NL63 (PCR) Not Detected (NotDetected) 12/01/23 17:56 Human Metapneumovir PCR Not Detected (NotDetected) 12/01/23 17:56 Influenza Type A (PCR) Not Detected (NotDetected) 12/01/23 17:56 Influenza Type B (PCR) Not Detected (NotDetected) 12/01/23 17:56 M. pneumoniae (PCR) Not Detected (NotDetected) 12/01/23 17:56 Parainfluenza 1 (PCR) Not Detected (NotDetected) 12/01/23 17:56 Parainfluenza 2 (PCR) Not Detected (NotDetected) 12/01/23 17:56 Parainfluenza 3 (PCR) Not Detected (NotDetected) 12/01/23 17:56 Parainfluenza 4 (PCR) Not Detected (NotDetected) 12/01/23 17:56 RSV (PCR) Not Detected (NotDetected) 12/01/23 17:56 Entero/Rhino (PCR) Not Detected (NotDetected) 12/01/23 17:56 Impressions Chest CTA 12/01/23 18:27 CT angio chest PE protocol CLINICAL HISTORY: PE TECHNIQUE: Multidetector row helical CT of the chest was performed with angiographic protocol. Coronal and sagittal reformations were obtained. Coronal and sagittal MIPS were obtained from the axial data set and were submitted for review. Automated dose lowering techniques and/or adjustment according to patient size were utilized for this exam. CT DOSE: 396.92 mGy.cm Comparison: None available at the time of this dictation. FINDINGS: Lungs and pleura: There is a 3 mm nodule in the right upper lobe (series 4 image 80). Heart and pericardium: Heart size is normal. No pericardial effusion. Vessels: Evaluation for pulmonary embolism is limited due to suboptimal contrast timing. No evidence of central, lobar, or segmental embolus. Mediastinum and reggie: Unremarkable. Chest wall and lower neck: Unremarkable. Abdomen: Unremarkable. Bones: Unremarkable. IMPRESSION: 1. No acute abnormality and in particular no evidence of pulmonary embolus. 2. Small pulmonary nodule in the right upper lobe. According to Fleischner criteria, no follow-up is required in low risk patients, in high-risk patients, a 12 month follow-up CT can be optionally performed. ACT 112: Negative or not required by law. Electronically signed by: Sami Perez M.D. 12/01/2023 7:10 PM
--- NOTE | 2023-12-02 00:21 | CT Scan Report ---
Exam(s): CT ABDOMEN + PELVIS Without Contrast EXAM: CT Abdomen and Pelvis Without Intravenous Contrast CLINICAL HISTORY: Pain. TECHNIQUE: Axial computed tomography images of the abdomen and pelvis without intravenous contrast. CTDI is 12.41 mGy and DLP is 594 mGy-cm. Automated exposure control was utilized for the study. A dose lowering technique was utilized adhering to the principles of ALARA. COMPARISON: No relevant prior studies available. FINDINGS: Lung bases: Unremarkable. No mass. No consolidation. ABDOMEN: Liver: Unremarkable. Gallbladder and bile ducts: The gallbladder is decompressed. No calcified stones. No ductal dilation. Pancreas: Unremarkable. No ductal dilation. Spleen: Unremarkable. No splenomegaly. Adrenals: Unremarkable. No mass. Kidneys and ureters: There are persistent nephrograms of the right kidney which demonstrates mild hydronephrosis. Left kidney is unremarkable. Stomach and bowel: Unremarkable. No obstruction. No mucosal thickening. PELVIS: Appendix: No findings to suggest acute appendicitis. Bladder: Unremarkable. No stones. Reproductive: Unremarkable as visualized. ABDOMEN and PELVIS: Intraperitoneal space: Unremarkable. No free air. No significant fluid collection. Bones/joints: No acute fracture. No dislocation. Soft tissues: Unremarkable. Vasculature: Unremarkable. No abdominal aortic aneurysm. Lymph nodes: Unremarkable. No enlarged lymph nodes. IMPRESSION: There are persistent nephrograms of the right kidney which demonstrates mild hydronephrosis. This is concerning for acute pyelonephritis. Electronically signed by: Jennifer Cantor MD 12/02/23 00:20 AM
--- NOTE | 2023-12-02 00:25 | History & Physical Report ---
Date of Service December 02, 2023 Assessment & Plan (1) Severe sepsis: Plan: SIRS plus lactic acidosis secondary to complicated UTI Right-sided pyelonephritis with hydronephrosis on imaging Lactic acid normalized after initial intervention at the ER PSVT secondary to above Troponin elevation secondary to tachycardia/sepsis Abnormal LFTs Hyperglycemia rule out DM Admit to PCU given PSVT CS, Ciprofloxacin Urology consult Re: Unilateral hydronephrosis, urosepsis N.p.o. in anticipation of procedure Follow troponin TTE, Cardiology consult Re: PSVT Follow LFTs, liver ultrasound, hepatitis panel and GI consult with progression Check hemoglobin A1c DVT prophylaxis per Lovenox subcu Full code Text document was generated using [employer] voice recognition software. It may contain grammatical or spelling errors. Kindly contact undersigned for clarification of any documentation item in question. History of Present Illness Chief Complaint: Right flank pain, dizziness Primary Care Provider: NO PCP History obtained from patient and records. No significant medical history. Patient experienced right-sided flank discomfort today followed by dysuria. Dizziness described as lightheadedness. Palpitations with SOB. Denies chest pain or cough symptoms. EMS called to patient's home. Patient noted to be in SVT, heart rate 170s. Heart rate improved to 140s after adenosine administration. No prior SVT episodes as per patient. Patient brought to the ER for evaluation. Ceftriaxone administered at the ER. 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 Allergies Allergy/AdvReac Type Severity Reaction Status Date / Time shellfish derived Allergy Severe Anaphylaxis Verified 12/01/23 19:16 Home Medications Medication Instructions Recorded Confirmed Type Zinc Liquid 1 dose PO DAILY 12/01/23 12/01/23 History acetaminophen 500 mg tablet 500 mg PO Q6H PRN PAIN/FEVER 12/01/23 12/01/23 History (Tylenol Extra Strength) ibuprofen 200 mg tablet 400 mg PO Q6H PRN PAIN/FEVER 12/01/23 12/01/23 History vitamin B complex 1 tab PO DAILY 12/01/23 12/01/23 History Past Med/Surg History Problem List (Updated 12/02/23 @ 03:41 by Ajay Tam MD) Severe sepsis UTI (urinary tract infection) (Acute) Elevated troponin I level (Acute) Fever (Acute) Hypomagnesemia (Acute) Hypokalemia (Acute) SVT (supraventricular tachycardia) (Acute) Social History Smoking Status: Never smoker Hx Alcohol Use: Yes Alcohol type: wine Hx Substance Use: No Preferred Language: Persian Communication Ability: Effective 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 Beliefs That Will Affect Care: None Current Living Situation: Other Current Living Situation Comment: lives w/ roomates Feels Safe at Home: Yes Safety Concerns: Feels Safe At This Time Assistive Devices: None Review of Systems Review of Systems: As per HPI, all other systems reviewed and negative Physical Exam Physical Exam: GENERAL: uncomfortable, no respiratory distress SKIN: Normal color, warm HEENT: [place] palpebral conjunctivae, no ptosis, dry buccal mucosa NECK : Supple, no tenderness CHEST : CTA, no tenderness HEART : RRR, no obvious murmurs ABDOMEN: Some distention, right-sided flank tenderness EXTREMITIES : No LE swelling/tenderness, no other conspicuous deformities noted NEUROLOGIC : Coherent, no facial asymmetry, no other gross focality Results & Data Results & Data Vital Signs (Past 12 Hours) Vital Signs Temp Pulse Pulse Resp BP BP Pulse Ox 12/01/23 23:00 88 16 82/58 L 99 12/01/23 21:29 101 H 12/01/23 21:00 104 H 18 96/67 L 96 12/01/23 20:26 36.8 C 12/01/23 19:25 111 H 18 89/57 L 98 12/01/23 19:21 115 H 24 99 12/01/23 19:20 89/57 L 12/01/23 19:18 114 H 27 H 12/01/23 19:12 129 H 25 H 12/01/23 19:10 109/61 12/01/23 19:10 109/61 12/01/23 19:10 109/61 12/01/23 19:09 114 H 24 12/01/23 19:03 118 H 23 98 12/01/23 19:00 88/56 L 12/01/23 18:50 102/68 12/01/23 18:27 117 H 18 12/01/23 18:18 132 H 28 H 100 12/01/23 18:16 108/56 L 12/01/23 18:10 90/58 L 12/01/23 18:10 90/58 L 12/01/23 18:10 90/58 L 12/01/23 18:09 119 H 22 97 12/01/23 18:06 120 H 20 98 12/01/23 18:00 97/56 L 12/01/23 18:00 97/56 L 12/01/23 18:00 97/56 L 12/01/23 17:57 123 H 22 98 12/01/23 17:54 129 H 24 99 12/01/23 17:54 94/59 L 12/01/23 17:54 94/59 L 12/01/23 17:54 94/59 L 12/01/23 17:51 126 H 24 99 12/01/23 17:39 130 H 12/01/23 17:38 126 H 22 97 12/01/23 17:38 97 12/01/23 17:38 12/01/23 17:38 38.3 C H 142 H 22 94/65 L 97 12/01/23 17:34 94/65 L O2 Del Method 12/01/23 23:00 Room Air 12/01/23 21:29 12/01/23 21:00 Room Air 12/01/23 20:26 12/01/23 19:25 Room Air 12/01/23 19:21 12/01/23 19:20 12/01/23 19:18 12/01/23 19:12 12/01/23 19:10 12/01/23 19:10 12/01/23 19:10 12/01/23 19:09 12/01/23 19:03 12/01/23 19:00 12/01/23 18:50 12/01/23 18:27 12/01/23 18:18 12/01/23 18:16 12/01/23 18:10 12/01/23 18:10 12/01/23 18:10 12/01/23 18:09 12/01/23 18:06 12/01/23 18:00 12/01/23 18:00 12/01/23 18:00 12/01/23 17:57 12/01/23 17:54 12/01/23 17:54 12/01/23 17:54 12/01/23 17:54 12/01/23 17:51 12/01/23 17:39 12/01/23 17:38 Room Air 12/01/23 17:38 Room Air 12/01/23 17:38 Room Air 12/01/23 17:38 Room Air 12/01/23 17:34 Laboratory Results Laboratory Results WBC 9.21 K/ul (4.8-10.8) 12/01/23 17:40 RBC 4.13 M/uL (4.20-5.40) L 12/01/23 17:40 Hgb 12.3 g/dl (12.0-16.0) 12/01/23 17:40 Hct 36.4 % (37.0-47.0) L 12/01/23 17:40 MCV 88.1 fL (80.0-100.0) 12/01/23 17:40 MCH 29.8 pg (25.0-34.0) 12/01/23 17:40 MCHC 33.8 g/dL (32.0-36.0) 12/01/23 17:40 RDW Std Deviation 42.3 fL (36.4-46.3) 12/01/23 17:40 RDW Coeff of Katerina 13.1 % (11.5-14.5) 12/01/23 17:40 Plt Count 238 K/uL (130-400) 12/01/23 17:40 MPV 8.7 fL (9.4-12.4) L 12/01/23 17:40 Immature Gran % (Auto) 0.7 % 12/01/23 17:40 Neut % (Auto) 91.8 % 12/01/23 17:40 Lymph % (Auto) 6.3 % 12/01/23 17:40 [place] % (Auto) 0.8 % 12/01/23 17:40 Eos % (Auto) 0.1 % 12/01/23 17:40 Baso % (Auto) 0.3 % 12/01/23 17:40 Neut # (Auto) 8.46 K/uL (1.40-6.50) H 12/01/23 17:40 Lymph # (Auto) 0.58 K/uL (1.20-3.40) L 12/01/23 17:40 [place] # (Auto) 0.07 K/uL (0.11-0.59) L 12/01/23 17:40 Eos # (Auto) 0.01 K/uL (0.00-0.50) 12/01/23 17:40 Baso # (Auto) 0.03 K/uL (0.00-0.20) 12/01/23 17:40 Immature Gran # (Auto) 0.06 K/uL (0.01-0.20) 12/01/23 17:40 Toxic Vacuolation 2+ 12/01/23 17:40 PT 11.0 Seconds (9.0-12.0) 12/01/23 17:40 INR 1.0 (0.9-1.1) 12/01/23 17:40 APTT 23 Seconds (21-31) 12/01/23 17:40 PTT Ratio 0.9 12/01/23 17:40 D-Dimer 3870 ug/L FEU (0-500) H* 12/01/23 17:40 Sodium 132 mmol/L (136-145) L 12/01/23 17:40 Potassium 3.4 mmol/L (3.5-5.1) L 12/01/23 17:40 Chloride 103 mmol/L (98-107) 12/01/23 17:40 Carbon Dioxide 20 mmol/L (21-32) L 12/01/23 17:40 Anion Gap 9 (3-11) 12/01/23 17:40 BUN 14 mg/dl (6-23) 12/01/23 17:40 Creatinine 0.80 mg/dl (0.6-1.2) 12/01/23 17:40 Est Cr Clr Drug Dosing 81.3 ml/min 12/01/23 17:40 Est GFR ( Amer) 114.7 ml/min 12/01/23 17:40 Est GFR (Non-Af Amer) 98.9 ml/min 12/01/23 17:40 BUN/Creatinine Ratio 17.5 (10-20) 12/01/23 17:40 Glucose 131 mg/dl (70-99(Fasting)) H 12/01/23 17:40 Estimat Average Glucose 117 mg/dl 12/01/23 19:04 Hemoglobin A1c 5.7 % (4.5-5.6) H 12/01/23 19:04 Lactate 1.8 mmol/L (0.4-2.0) 12/01/23 20:57 Calcium 8.9 mg/dl (8.6-10.3) 12/01/23 17:40 Magnesium 1.4 mg/dl (1.7-2.4) L 12/01/23 17:40 Total Bilirubin 0.5 mg/dl (0.2-1.0) 12/01/23 17:40 AST 180 U/L (13-39) H 12/01/23 17:40 ALT 100 U/L (7-52) H 12/01/23 17:40 Alkaline Phosphatase 107 U/L (34-104) H 12/01/23 17:40 Total Creatine Kinase 62 U/L (26-192) 12/01/23 17:40 Troponin I High Sens 131.9 pg/ml (0-14) H* D 12/01/23 19:04 C-Reactive Protein 3.14 mg/dl (0-0.5) H 12/01/23 17:40 Total Protein 7.0 gm/dl (6.0-8.3) 12/01/23 17:40 Albumin 3.9 gm/dl (3.4-5.0) 12/01/23 17:40 Globulin 3.1 gm/dl (2.5-4.0) 12/01/23 17:40 Albumin/Globulin Ratio 1.3 (0.9-2) 12/01/23 17:40 Lipase 45 U/L (11-82) 12/01/23 17:40 Procalcitonin 2.51 ng/ml (0-0.5) H 12/01/23 17:40 TSH 0.961 uIu/ml (0.300-4.500) 12/01/23 17:40 HCG, Qual Negative (Negative) 12/01/23 17:40 Urine Color Yellow 12/01/23 18:12 Urine Appearance Turbid (Clear) A 12/01/23 18:12 Urine pH 5.5 (4.5-7.5) 12/01/23 18:12 Ur Specific [place] 1.014 (1.000-1.030) 12/01/23 18:12 Urine Protein 1+ (Negative) H 12/01/23 18:12 Urine Glucose (UA) Negative (Negative) 12/01/23 18:12 Urine Ketones Trace (Negative) H 12/01/23 18:12 Urine Blood Negative (Negative) 12/01/23 18:12 Urine Nitrite Positive (Negative) A 12/01/23 18:12 Urine Bilirubin Negative (Negative) 12/01/23 18:12 Urine Urobilinogen Negative (Negative) 12/01/23 18:12 Ur Leukocyte Esterase 3+ (Negative) H 12/01/23 18:12 Urine WBC (Auto) >50 /hpf (0-5) H 12/01/23 18:12 Urine RBC (Auto) 0-2 /hpf (0-2) 12/01/23 18:12 U Hyaline Cast (Auto) 3-5 /lpf (0-2) H 12/01/23 18:12 U Epithel Cells (Auto) >20 /hpf (0-2) H 12/01/23 18:12 Urine Bacteria (Auto) 4+ (None Seen) H 12/01/23 18:12 Adenovirus (PCR) Not Detected (NotDetected) 12/01/23 17:56 Anaplasma Smear See Comment 12/01/23 17:40 Babesia Smear See Comment 12/01/23 17:40 B. pertussis DNA (PCR) Not Detected (NotDetected) 12/01/23 17:56 B.parapertussis DNA PCR Not Detected (NotDetected) 12/01/23 17:56 Lyme Disease Screen Negative (Negative) 12/01/23 17:40 C. pneumoniae DNA (PCR) Not Detected (NotDetected) 12/01/23 17:56 Coronavirus OC43 (PCR) Not Detected (NotDetected) 12/01/23 17:56 Coronavirus HKU1 (PCR) Not Detected (NotDetected) 12/01/23 17:56 Coronavirus 229E (PCR) Not Detected (NotDetected) 12/01/23 17:56 SARS-CoV-2 (PCR) Not Detected (NotDetected) 12/01/23 17:56 Coronavirus NL63 (PCR) Not Detected (NotDetected) 12/01/23 17:56 Human Metapneumovir PCR Not Detected (NotDetected) 12/01/23 17:56 Influenza Type A (PCR) Not Detected (NotDetected) 12/01/23 17:56 Influenza Type B (PCR) Not Detected (NotDetected) 12/01/23 17:56 M. pneumoniae (PCR) Not Detected (NotDetected) 12/01/23 17:56 Parainfluenza 1 (PCR) Not Detected (NotDetected) 12/01/23 17:56 Parainfluenza 2 (PCR) Not Detected (NotDetected) 12/01/23 17:56 Parainfluenza 3 (PCR) Not Detected (NotDetected) 12/01/23 17:56 Parainfluenza 4 (PCR) Not Detected (NotDetected) 12/01/23 17:56 RSV (PCR) Not Detected (NotDetected) 12/01/23 17:56 Entero/Rhino (PCR) Not Detected (NotDetected) 12/01/23 17:56 Impressions Chest CTA 12/01/23 18:27 CT angio chest PE protocol CLINICAL HISTORY: PE TECHNIQUE: Multidetector row helical CT of the chest was performed with angiographic protocol. Coronal and sagittal reformations were obtained. Coronal and sagittal MIPS were obtained from the axial data set and were submitted for review. Automated dose lowering techniques and/or adjustment according to patient size were utilized for this exam. CT DOSE: 396.92 mGy.cm Comparison: None available at the time of this dictation. FINDINGS: Lungs and pleura: There is a 3 mm nodule in the right upper lobe (series 4 image 80). Heart and pericardium: Heart size is normal. No pericardial effusion. Vessels: Evaluation for pulmonary embolism is limited due to suboptimal contrast timing. No evidence of central, lobar, or segmental embolus. Mediastinum and reggie: Unremarkable. Chest wall and lower neck: Unremarkable. Abdomen: Unremarkable. Bones: Unremarkable. IMPRESSION: 1. No acute abnormality and in particular no evidence of pulmonary embolus. 2. Small pulmonary nodule in the right upper lobe. According to Fleischner criteria, no follow-up is required in low risk patients, in high-risk patients, a 12 month follow-up CT can be optionally performed. ACT 112: Negative or not required by law. Electronically signed by: Sami Perez M.D. 12/01/2023 7:10 PM Abdomen/Pelvis CT 12/01/23 19:59 Exam(s): CT ABDOMEN + PELVIS Without Contrast EXAM: CT Abdomen and Pelvis Without Intravenous Contrast CLINICAL HISTORY: Pain. TECHNIQUE: Axial computed tomography images of the abdomen and pelvis without intravenous contrast. CTDI is 12.41 mGy and DLP is 594 mGy-cm. Automated exposure control was utilized for the study. A dose lowering technique was utilized adhering to the principles of ALARA. COMPARISON: No relevant prior studies available. FINDINGS: Lung bases: Unremarkable. No mass. No consolidation. ABDOMEN: Liver: Unremarkable. Gallbladder and bile ducts: The gallbladder is decompressed. No calcified stones. No ductal dilation. Pancreas: Unremarkable. No ductal dilation. Spleen: Unremarkable. No splenomegaly. Adrenals: Unremarkable. No mass. Kidneys and ureters: There are persistent nephrograms of the right kidney which demonstrates mild hydronephrosis. Left kidney is unremarkable. Stomach and bowel: Unremarkable. No obstruction. No mucosal thickening. PELVIS: Appendix: No findings to suggest acute appendicitis. Bladder: Unremarkable. No stones. Reproductive: Unremarkable as visualized. ABDOMEN and PELVIS: Intraperitoneal space: Unremarkable. No free air. No significant fluid collection. Bones/joints: No acute fracture. No dislocation. Soft tissues: Unremarkable. Vasculature: Unremarkable. No abdominal aortic aneurysm. Lymph nodes: Unremarkable. No enlarged lymph nodes. IMPRESSION: There are persistent nephrograms of the right kidney which demonstrates mild hydronephrosis. This is concerning for acute pyelonephritis. Electronically signed by: Jennifer Cantor MD 12/02/23 00:20 AM Diagnostic Findings EKG as per my interpretation : Rate 140, sinus tachycardia, LAD, LAFB, incomplete RBBB, no ischemia
[2023-12-02] MEDS ORDERED: ACETAMINOPHEN 500 MG TAB PO PRN (01:44)
[2023-12-02] MEDS: MELATONIN 3 MG TAB PO PRN ×2 (02:16→22:05)
[2023-12-02] MEDS: NSS + 20MEQ KCL 20 MEQ/1,000 ML BAG IV ONE (05:34)
[2023-12-02] MEDS: KETOROLAC TROMETHAMINE 15 MG/ML VIAL IV PRN (05:39)
[2023-12-02] MEDS: CIPROFLOXACIN / D5W 400 MG/200 ML BAG IV SCH (05:44)
[2023-12-02] MEDS: KETOROLAC TROMETHAMINE 15 MG/ML VIAL IV ONE (06:03)
[2023-12-02 06:32] LABS: Albumin Level 3.2 gm/dl (3.4-5.0); Bilirubin Direct 0.1 mg/dl (0-0.2); Bilirubin,Total 0.4 mg/dl (0.2-1.0); Calcium 7.4 mg/dl (8.6-10.3); Creatinine Clr Calc Pharmacy 120.5 ml/min; Est GFR (African American) 146.8 ml/min; Est GFR (Non-African American) 126.6 ml/min; Magnesium 2.1 mg/dl (1.7-2.4); Potassium 4.2 mmol/L (3.5-5.1); Total Protein 5.9 gm/dl (6.0-8.3)
[2023-12-02 06:39] LABS: Troponin I High Sensitivity 29.7 pg/ml (0-14)
[2023-12-02 07:15] LABS: Hematocrit (blood only) 31.2 % (37.0-47.0); Hemoglobin 10.3 g/dl (12.0-16.0); Mean Corpuscular Hemoglobin 29.3 pg (25.0-34.0); Mean Corpuscular Volume 88.9 fL (80.0-100.0); Mean Platelet Volume 8.7 fL (9.4-12.4); Platelet Count 218 K/uL (130-400); RDW Coefficient of Variation 13.5 % (11.5-14.5); RDW Standard Deviation 43.8 fL (36.4-46.3); Red Blood Count 3.51 M/uL (4.20-5.40); White Blood Count 21.91 K/ul (4.8-10.8)
[2023-12-02 07:16] LABS: Basophils % (auto) 0.5 %; Eosinophils # (auto) 0.06 K/uL (0.00-0.50); Eosinophils % (auto) 0.3 %; Immature Granulocytes # (auto) 0.12 K/uL (0.01-0.20); Immature Granulocytes % (auto) 0.5 %; Lymphocytes # (auto) 1.82 K/uL (1.20-3.40); Lymphocytes % (auto) 8.3 %; Monocytes # (auto) 1.48 K/uL (0.11-0.59); Monocytes % (auto) 6.8 %; Neutrophils # (auto) 18.33 K/uL (1.40-6.50); Neutrophils % (auto) 83.6 %
[2023-12-02 07:23] LABS: A calco-baum cmplx NotReported Not Detected (NotDetected); Bact fragilis Not Reported Not Detected (NotDetected); Blood Culture Id Panel See PCR Comment (NotDetected); C auris Not Reported Not Detected (NotDetected); CTX-M Resistant Gene Not Detected (NotDetected); Calbicans Not Reported Not Detected (NotDetected); Candida glabrata Not Reported Not Detected (NotDetected); Candida krusei Not Reported Not Detected (NotDetected); Cneoformans/gatti Not Reported Not Detected (NotDetected); Cparapsilosis Not Reported Not Detected (NotDetected); E cloacae compx Not Reported Not Detected (NotDetected); Efaecalis Not Reported Not Detected (NotDetected); Efaecium Not Reported Not Detected (NotDetected); Enterobacterales DETECTED (NotDetected); Enterobacterales Not Reported DETECTED (NotDetected); Escherichia coli Not Reported DETECTED (NotDetected); H influenzae Not Reported Not Detected (NotDetected); IMP Resistant Gene Not Detected (NotDetected); K aerogenes Not Reported Not Detected (NotDetected); KPC Resistant Gene Not Detected (NotDetected); Koxytoca Not Reported Not Detected (NotDetected); Kpneumoniae grp Not Reported Not Detected (NotDetected); Lmonocyt Not Reported Not Detected (NotDetected); N meningitidis Not Reported Not Detected (NotDetected); NDM Resistant Gene Not Detected (NotDetected); OXA 48 Like Resistant Gene Not Detected (NotDetected); P aeruginosa Not Reported Not Detected (NotDetected); Proteus spp Not Reported Not Detected (NotDetected); Salmonella spp Not Reported Not Detected (NotDetected); Staph lugdunensis Not Reported Not Detected (NotDetected); Staph spp. Not Reported Not Detected (NotDetected); Staphaureus Not Reported Not Detected (NotDetected); Staphepi Not Reported Not Detected (NotDetected); Stenmaltophilia Not Reported Not Detected (NotDetected); Strep agal(GrpB) Not Reported Not Detected (NotDetected); Strep pneum Not Reported Not Detected (NotDetected); Strep pyog (GrpA) Not Reported Not Detected (NotDetected); Strep spp Not Reported Not Detected (NotDetected); VIM Resistant Gene Not Detected (NotDetected); mcr-1 Colistin Resistant Gene Not Detected (NotDetected)
--- NOTE | 2023-12-02 08:35 | Urology Consultation ---
Date of Consultation December 02, 2023 Assessment & Plan (1) Pyelonephritis: (2) Severe sepsis: 28 yo/F admitted for severe sepsis secondary to right pyelonephritis. Afebrile overnight, Tmax on arrival 38.3; no tachycardia this am Labs reviewedcreatinine 0.54, WBC increased to 21.91 Urine and blood cultures preliminary with gram-negative bacilli She received IV ceftriaxone and Zosyn, continues on Zosyn Right flank discomfort is improved since arrival CT imaging reviewed and discussedfindings consistent with right pyelonephritis, mild right hydronephrosis/hydroureter Suspect mild right hydronephrosis/hydroureter is secondary to infection, no stone appreciated though limited due to contrast present No acute intervention at this time Continue with IV antibiotics and narrow per sensitivity data when available If she is not improving with antibiotics, consider repeat imaging to reassess for obstruction Continue supportive care and medical management per hospital medicine will follow History of Present Illness Attending Physician: Karyn Mejias MD History of Present Illness This is a 28-year-old female who presented to the emergency department via ambulance for evaluation of palpitations and shortness of breath. She had a heart rate in the 170s and was treated with adenosine prior to arrival. On arrival to ED, she was febrile (38.3), tachycardic in the 140s, SBP's in the 90s. Lab work showed WBC 9.21, hemoglobin 12.3, creatinine 0.80, D-dimer elevated at 3870, elevated troponin of 65.3, and elevated lactate of 3.0. hCG negative. Urinalysis was positive for nitrates, 3+ leukocyte esterase, >50 WBC and 4+ bacteria. Urine and blood cultures collected. ED course: IV fluids, ceftriaxone, Zosyn and ketorolac. She had a chest CTA which showed no evidence of pulmonary embolus. CT abdomen pelvis without contrast showed persistent nephrograms of the right kidney with mild hydronephrosis and hydroureter. She was admitted to the hospital medicine service for severe sepsis and right pyelonephritis. Labs todaycreatinine 0.54, WBC 21.91, hemoglobin 10.3 Urine and blood cultures are pending E. coli and Enterobacterales detected on PCR Patient seen and examined at bedside this morning. She is awake and sitting up in bed. She continues to have some right flank discomfort, improved since arrival. Denies nausea or vomiting. No dysuria or hematuria. She is voiding without difficulty. No fever or chills at present. No personal history of kidney stones. Allergies Allergy/AdvReac Type Severity Reaction Status Date / Time shellfish derived Allergy Severe Anaphylaxis Verified 12/01/23 19:16 Home Medications Medication Instructions Recorded Confirmed Type Zinc Liquid 1 dose PO DAILY 12/01/23 12/01/23 History acetaminophen 500 mg tablet 500 mg PO Q6H PRN PAIN/FEVER 12/01/23 12/01/23 History (Tylenol Extra Strength) ibuprofen 200 mg tablet 400 mg PO Q6H PRN PAIN/FEVER 12/01/23 12/01/23 History vitamin B complex 1 tab PO DAILY 12/01/23 12/01/23 History Patient History Social History Smoking Status: Never smoker Hx Alcohol Use: Yes Alcohol type: wine Hx Substance Use: No Preferred Language: Indonesian Communication Ability: Effective Animal Health Technician Required: No Beliefs That Will Affect Care: None Current Living Situation: Other Current Living Situation Comment: lives w/ roomates Feels Safe at Home: Yes Safety Concerns: Feels Safe At This Time Assistive Devices: None Review of Systems Review of Systems: All systems reviewed & are unremarkable except as noted in HPI & below Physical Exam Constitutional: well developed and well nourished; no acute distress Eyes: no scleral abnormality Respiratory: normal respiratory effort; no respiratory distress and no labored breathing Gastrointestinal (Abdomen): Inspection/Auscultation: abdomen normal to inspection Musculoskeletal: Head/Neck/Chest: normocephalic Neurologic: moves all extremities and awake Psychiatric: Orientation: alert and oriented x 3 Genitourinary: Mild tenderness to palpation over right flank Results & Data Vital Signs (Past 12 Hours) Vital Signs Temp Pulse Pulse Resp BP BP Pulse Ox 12/02/23 07:17 36.9 C 89 19 96/62 L 98 12/02/23 03:18 36.8 C 76 18 90/60 L 98 12/02/23 01:30 93 H 12/02/23 01:30 36.8 C 94 H 18 104/72 99 12/02/23 01:07 84 16 87/55 L 98 12/01/23 23:00 88 16 82/58 L 99 12/01/23 21:29 101 H 12/01/23 21:00 104 H 18 96/67 L 96 O2 Del Method 12/02/23 07:17 Room Air 12/02/23 03:18 Room Air 12/02/23 01:30 12/02/23 01:30 Room Air 12/02/23 01:07 Room Air 12/01/23 23:00 Room Air 12/01/23 21:29 12/01/23 21:00 Room Air PG Care Time/CCT Total # of Minutes Spent Total Time Spent with Patient: Total time spent is greater than 50% in coordination of care (as documented) at patient's floor/unit and/or counseling patient: Coding Level of Care Code 56875 IN/OBS CONSULT LVL 4,60M Diagnoses Pyelonephritis N12 Severe sepsis A41.9; R65.20
[2023-12-02] MEDS: ENOXAPARIN INJ 40 MG/0.4 ML SYR SQ SCH (08:43)
[2023-12-02] MEDS: VITAMIN B COMPLEX TAB PO SCH (08:43)
--- NOTE | 2023-12-02 09:31 | Cardiology Consultation ---
Date of Consultation December 02, 2023 Assessment & Plan (1) Pyelonephritis: (2) Severe sepsis: (3) Elevated troponin I level: (4) Palpitation: (5) Hypomagnesemia: (6) Hypokalemia: Plan 28-year-old female seen at the request of Dr. Tam, RE: PSVT (versus sinus tachycardia) occurring in the setting of significant infection (right-sided pyelonephritis, severe sepsis, bacteremia), hypokalemia, hypomagnesemia, volume depletion. Troponin elevation likely reflects the critical illness with associated tachycardia. Resting echocardiography with preserved LV systolic function without wall motion abnormalities. Presenting symptoms as well as heart rates have significantly improved following initial treatments of underlying infection, currently with heart rates in the 80's. Recommend observing heart rates on telemetry for now. Hold off on initiation of beta- jj therapy. Infection treatment as per hospitalist. I spent a total of 53 minutes on the date of service in preparation, delivery, and documentation of the care provided to this patient excluding any time spent in the performance of separately billed services. This visit was a split-shared visit with the substantive portion of the medical decision making performed by the supervising practicing md anesthesiologist/billing provider. Supervising Physician Co-Signing Physician Notes I have personally performed a history and physical examination on the patient. I have reviewed the advance practitioner's documentation, and I agree with, and take responsibility for the plan of care. 28-year-old female admitted with urosepsis with gram-negative bacteremia. Tachycardia reported by EMS, possibly PSVT at a heart rate of 180 bpm, however, rhythm strips unavailable for review. She has been in sinus rhythm since admission. Sinus tachycardia noted on ECG as well as telemetry in the emergency department. Heart rates have since improved into the 80s with fluid resuscitation and IV antibiotic therapy. Patient diagnosed with pyelonephritis. Without documented evidence of PSVT, hold off on beta-jj for the time being. Continue telemetry monitoring while hospitalized. Echocardiogram demonstrates normal LV function with mild mitral regurgitation. No pericardial effusion. Treatment of underlying infectious process as per internal medicine. Thank you for allow me to participate in the care of your patient. I spent a total of 30 minutes on the date of service in preparation, delivery, and documentation of the care provided to this patient, excluding any time spent in the performance of separately billed services. History of Present Illness Reason for Consultation: SVT Requesting Physician: Dr. Tam Attending Physician: Dr. Mejias History of Present Illness Lucila Richard is a 28-year-old female who began to experience dysuria 3 days ago. This was followed by right lower abdominal pain and then right flank pain. Decrease oral intake noted. Yesterday, after showering, she began to have shakin g chills. After about an hour of rigors that she felt dizzy, nauseous (with emesis) and then developed tachypalpitations and shortness of breath. She notes feeling as though she was having a panic attack. She was concerned regarding the possibility of low blood sugar and took in orange juice without benefit. Patient then summoned her housemates to call 911. Heart rates were noted to be up to 180 bpm via palpation. As best I can tell, patient received IV fluid resuscitation and 1 or 2 doses of adenosine with slowing of the heart rate down to the 150s. Imaging in the ER revealed right pyelonephritis. Preliminary urine and blood cultures with gram-negative bacilli. Cardiology consultation requested due to SVT. EMS rhythm strips not available for review. Admission EKG was sinus tachycardia with a ventricular rate of 138 bpm with possible left atrial enlargement. Review the patient's continuous satellite project site monitor reveals sinus/sinus tachycardia throughout. Heart rates are currently in the 80s. High-sensitivity troponin as follows: 65.3 -> 131.9 -> 29.7 pg/mL. Resting echocardiography revealed preserved LV systolic function, EF 60 to 65%, with normal LV wall motion, mild mitral regurgitation. Patient denies prior cardiac history. She specifically denies history of arrhythmia, heart murmur, CHF, CAD, rheumatic fever, or scarlet fever Past Medical and Surgical History: None. Family History: Mother is alive and well without cardiac issues. Father in his 30s, in his sleep, when patient was 28 days old. Three siblings without cardiac issues. Social History: No tobacco. Rare alcohol, typically a glass of wine. No illegal/illicit drug use. 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 Lives with housemates in an apartment. Originally from the [facility]. Allergies Allergy/AdvReac Type Severity Reaction Status Date / Time shellfish derived Allergy Severe Anaphylaxis Verified 12/01/23 19:16 Home Medications Medication Instructions Recorded Confirmed Type Zinc Liquid 1 dose PO DAILY 12/01/23 12/01/23 History acetaminophen 500 mg tablet 500 mg PO Q6H PRN PAIN/FEVER 12/01/23 12/01/23 History (Tylenol Extra Strength) ibuprofen 200 mg tablet 400 mg PO Q6H PRN PAIN/FEVER 12/01/23 12/01/23 History vitamin B complex 1 tab PO DAILY 12/01/23 12/01/23 History Patient History Social History Smoking Status: Never smoker Hx Alcohol Use: Yes Alcohol type: wine Hx Substance Use: No Preferred Language: Irish Communication Ability: Effective Customer Service Dispatcher Required: No Beliefs That Will Affect Care: None Current Living Situation: Other Current Living Situation Comment: lives w/ roomates Feels Safe at Home: Yes Safety Concerns: Feels Safe At This Time Assistive Devices: None Review of Systems Review of Systems: Complete Review of Systems: Constitutional: + Chills. HEENT: No history of amaurosis fugax. Pulmonary: Zyrtec for allergies. No history of asthma. No history of sleep apnea. No history of PE. Cardiac: Negative. GI/Abd: No dysphagia. No GERD. No melana or hematochezia. No kidney problems. No liver problems. No history of pancreatic issues. Vascular: No history of carotid artery disease, AAA, or lower extremity claudication/PAD. Hematologic: No coagulation disorder, anemia, or abnormal bleeding. Musculoskeletal: Negative. Skin: No rash. Neurologic: No history of TIA/CVA, or seizure disorder. Female : See above. Endocrine: No thyroid issues. + Hypoglycemia. Complete Review of Systems is as stated above, negative, or noncontributory Physical Exam Physical Exam: General: A&Ox3. NAD. HENT: Normocephalic. Atraumatic. Eyes: PER. Conjunctiva pink, sclera clear. Neck: No JVD. No HJR. Heart: RRR 80 bpm. No murmur. No rub. Lungs: Clear to auscultation. Abdomen: +BS. Extremities: ? Stasis changes. No clubbing, cyanosis, or edema. Limited neurological examination is without focal deficits. Pulses: Posterior tibial=2/4. Results & Data Vital Signs (Past 12 Hours) Vital Signs Temp Pulse Pulse Resp BP BP Pulse Ox 12/02/23 07:17 36.9 C 89 19 96/62 L 98 12/02/23 03:18 36.8 C 76 18 90/60 L 98 12/02/23 01:30 93 H 12/02/23 01:30 36.8 C 94 H 18 104/72 99 12/02/23 01:07 84 16 87/55 L 98 12/01/23 23:00 88 16 82/58 L 99 O2 Del Method 12/02/23 07:17 Room Air 12/02/23 03:18 Room Air 12/02/23 01:30 12/02/23 01:30 Room Air 12/02/23 01:07 Room Air 12/01/23 23:00 Room Air Laboratory Results Cardiac Enzymes 12/01/23 12/01/23 12/02/23 Range/Units 17:40 19:04 05:47 AST 180 H 66 H (13-39) U/L Troponin I High Sens 65.3 H* 131.9 H* D 29.7 H D (0-14) pg/ml Coagulation 12/01/23 Range/Units 17:40 PT 11.0 (9.0-12.0) Seconds APTT 23 (21-31) Seconds CBC 12/01/23 12/02/23 Range/Units 17:40 05:47 WBC 9.21 21.91 H D (4.8-10.8) K/ul RBC 4.13 L 3.51 L (4.20-5.40) M/uL Hgb 12.3 10.3 L (12.0-16.0) g/dl Hct 36.4 L 31.2 L (37.0-47.0) % Plt Count 238 218 (130-400) K/uL Neut # (Auto) 8.46 H 18.33 H (1.40-6.50) K/uL Lymph # (Auto) 0.58 L 1.82 (1.20-3.40) K/uL Foard # (Auto) 0.07 L 1.48 H (0.11-0.59) K/uL Eos # (Auto) 0.01 0.06 (0.00-0.50) K/uL Baso # (Auto) 0.03 0.10 (0.00-0.20) K/uL Comprehensive Metabolic Panel 12/01/23 12/02/23 Range/Units 17:40 05:47 Sodium 132 L 137 (136-145) mmol/L Potassium 3.4 L 4.2 D (3.5-5.1) mmol/L Chloride 103 112 H (98-107) mmol/L Carbon Dioxide 20 L 19 L (21-32) mmol/L BUN 14 7 (6-23) mg/dl Creatinine 0.80 0.54 L (0.6-1.2) mg/dl Glucose 131 H 101 H (70-99(Fasting)) mg/dl Calcium 8.9 7.4 L (8.6-10.3) mg/dl Direct Bilirubin 0.1 (0-0.2) mg/dl AST 180 H 66 H (13-39) U/L ALT 100 H 72 H (7-52) U/L Alkaline Phosphatase 107 H 78 (34-104) U/L Total Protein 7.0 5.9 L (6.0-8.3) gm/dl Albumin 3.9 3.2 L (3.4-5.0) gm/dl Intake and Output 12/01/23 12/02/23 12/02/23 22:59 06:59 14:59 Intake Total 3350 / 3350 Balance 3350 / 3350 Intake: IV 3350 / 3350 Magnesium Sulfate / D5w 1 gm In 200 / 200 100 ml @ 50 mls/hr IV ONE ONE Rx#:[id number] Nss + 20Meq KCl 20 meq In 1,000 1000 / 1000 ml @ 500 mls/hr IV .Q2H ONE Rx #:[id number] Piperacillin/Tazobactam 4.5 gm 100 / 100 In 100 ml @ 200 mls/hr IV NOW ONE Rx#:[id number] Sodium Chloride 0.9% 1,000 ml @ 2000 / 2000 999 mls/hr IV .Q1H1M ONE Rx#: [id number] cefTRIAXone SODIUM 2,000 mg In 50 / 50 50 ml @ 100 mls/hr IV NOW STA Rx#:[id number] Other: Other Intake Source sips and chips # Unmeasured Voids 1 Weight 59 kg Weight Measurement Method Built in [facility] Diagnostic Findings December 02, 2023 TTE Interpretation Summary ([facility], Dr. Wood): LVEF 60 to 65%. Normal LV wall motion. Pulse-wave TDI of the anterior and posterior mitral annulus demonstrates normal LV relaxation. Mild mitral regurgitation. Telemetry: Sinus/sinus tachycardia. Heart rates currently in the 80s. No SVT. No atrial fibrillation. No VT.
[2023-12-02] MEDS: PIPER/TAZO 4.5g in D5W MINI-B 100 ML IV STA (10:07)
--- NOTE | 2023-12-02 14:38 | Communication Note ---
Date of Service: December 02, 2023 Patient evaluated at bedside No acute concerns, reports significant improvement,still with right flank pain CV tachycardic, regular Resp CTAB Abd CVA+L>R #Sepsis #Acute pyelonephritis #Uncomplicated GNB bacteremia iso complicated UTI CT AB with mild hypdronephrosis, renal function stable UA culture 11/30 pending Blood Cultures 08/31 + GNB iso complicated UTI BCID2: Ecoli and enterobacterales -empiric with Zosyn at this time iso sepsis -cipro with 83% susceptibility for empiric coverage -Narrow based upon sensitivities #Demand ischemia #Palpitations iso sepsis CTM on tele, treat as above
[2023-12-02] MEDS: PIPER/TAZO 4.5g in D5W MINI-B 100 ML IV SCH (16:16)
[2023-12-02] MEDS: ACETAMINOPHEN 500 MG TAB PO PRN (16:16)
[2023-12-02] MEDS: LORazepam 0.5 MG TAB PO PRN (20:37)
--- NOTE | 2023-12-02 22:39 | Electrocardiogram Report ---
Test Reason : Blood Pressure : / mmHG Vent. Rate : 138 BPM Atrial Rate : 138 BPM P-R Int : 150 ms QRS Dur : 084 ms QT Int : 286 ms P-R-T Axes : 071 -10 049 degrees QTc Int : 433 ms Sinus tachycardia Possible Left atrial enlargement Incomplete right bundle branch block No previous ECGs available Confirmed by Matt Ely ([id number]) on 12/02/2023 10:39:14 PM Referred By: NO PCP Confirmed By:Matt Ely
[2023-12-03 07:01] LABS: Hematocrit (blood only) 32.3 % (37.0-47.0); Hemoglobin 10.7 g/dl (12.0-16.0); Mean Corpuscular Hemoglobin 29.3 pg (25.0-34.0); Mean Corpuscular Hgb Conc 33.1 g/dL (32.0-36.0); Mean Corpuscular Volume 88.5 fL (80.0-100.0); Mean Platelet Volume 9.3 fL (9.4-12.4); Platelet Count 229 K/uL (130-400); RDW Coefficient of Variation 13.7 % (11.5-14.5); RDW Standard Deviation 44.4 fL (36.4-46.3); Red Blood Count 3.65 M/uL (4.20-5.40)
[2023-12-03 07:23] LABS: Albumin Globulin Ratio 1.1 (0.9-2); Albumin Level 3.4 gm/dl (3.4-5.0); BUN Creatinine Ratio 12.5 (10-20); Bilirubin,Total 0.3 mg/dl (0.2-1.0); Creatinine Clr Calc Pharmacy 110.5 ml/min; Est GFR (African American) 138.8 ml/min; Est GFR (Non-African American) 119.7 ml/min; Globulin 3.2 gm/dl (2.5-4.0); Phosphorus 3.5 mg/dl (2.5-4.9); Potassium 3.9 mmol/L (3.5-5.1); Total Protein 6.6 gm/dl (6.0-8.3)
[2023-12-03 08:14] LABS: Ferritin 203.2 ng/ml (8-388)
[2023-12-03 08:18] LABS: Folate (Folic Acid),Ser orPlas 3.12 ng/ml (>5.38)
--- NOTE | 2023-12-03 10:04 | Urology Progress Note ---
Date of Service December 03, 2023 Assessment & Plan (1) Pyelonephritis: Plan Pyelonephritis Pyelonephritis is medical not a surgical disease and does not require further urological management She needs to be covered with antibiotics and supported appropriately She does not require follow-up after this but can simply follow-up with her PCP Admission and Anticipated Discharge Date Admission Date: December 02, 2023 Subjective Pyelonephritisgradually improving She reports that she subjectively feels much better, much less discomfort Still with a leukocytosis of 15,000 Culture still pending but showing gram-negative bacilli, awaiting final speciation and sensitivities Did have a fever yesterday afternoon Physical Exam Constitutional: well developed and well nourished Respiratory: no respiratory distress Cardiovascular: Extremities: no pedal edema Gastrointestinal (Abdomen): Inspection/Auscultation: abdomen normal to inspection Results & Data Vital Signs (Past 12 Hours) Vital Signs Temp Pulse Pulse Resp BP Pulse Ox O2 Del Method 12/03/23 08:53 Room Air 12/03/23 08:08 37.0 C 98 H 17 106/66 98 Room Air 12/03/23 07:00 94 H 12/03/23 03:46 37.3 C 82 16 90/53 L 98 Room Air 12/02/23 23:52 37.4 C 88 16 91/52 L 97 Room Air PG Care Time/CCT Total # of Minutes Spent Total Time Spent with Patient: Total time spent is greater than 50% in coordination of care (as documented) at patient's floor/unit and/or counseling patient: Coding Level of Care Code 52226 SUB INP/OBS CARE 2/35MIN Diagnoses Pyelonephritis N12
--- NOTE | 2023-12-03 11:04 | Hospitalist Progress Note ---
Date of Service December 03, 2023 Assessment & Plan (1) Severe sepsis: Plan: Ms Richard is a 28 year old woman with no significant medical history was admitted 12/01 for pyelonephritis. Patient noted to have uncomplicated GNB likely 2/2 pyelonephritis. #Sepsis #Acute pyelonephritis #Uncomplicated GNB bacteremia iso complicated UTI CT AB with mild hypdronephrosis, renal function stable UA culture 11/30 pending Blood Cultures 08/31 + GNB iso complicated UTI BCID2: Ecoli and enterobacterales -empiric with Zosyn at this time iso sepsis -Narrow based upon sensitivities -Cipro susceptible on UA, will transition to PO when blood cultures result #Demand ischemia #Palpitations iso sepsis CTM on tele, treat as above #Prediabetes 5.7%, discuss lifestyle modifications #Transaminitis resolving, likely 2/2 sepsis #Insomnia trial zolpidem DVT prophylaxis per Lovenox subcu Full code Admission and Anticipated Discharge Date Admission Date: December 02, 2023 Subjective Evaluated this morning, reports resolution of back pain and denies any acute concerns Reports some issues with insomnia and didn't like the ativan Denies fevers chills or other acute concerns Physical Exam Constitutional: WD/WN, vitals as above Respiratory: normal respiratory effort, lungs clear to auscultation Cardiovascular: RRR, no murmur, no edema Results & Data Results & Data Vital Signs (Past 12 Hours) Vital Signs Temp Pulse Pulse Resp BP Pulse Ox O2 Del Method 12/03/23 08:53 Room Air 12/03/23 08:08 37.0 C 98 H 17 106/66 98 Room Air 12/03/23 07:00 94 H 12/03/23 03:46 37.3 C 82 16 90/53 L 98 Room Air 12/02/23 23:52 37.4 C 88 16 91/52 L 97 Room Air Laboratory Results Short CBC 12/03/23 Range/Units 05:40 WBC 15.50 H (4.8-10.8) K/ul Hgb 10.7 L (12.0-16.0) g/dl Hct 32.3 L (37.0-47.0) % Plt Count 229 (130-400) K/uL BMP 12/03/23 05:40 Sodium 135 L Potassium 3.9 Chloride 105 Carbon Dioxide 22 BUN 8 Creatinine 0.64 Glucose 87 Calcium 8.0 L Liver Function 12/03/23 Range/Units 05:40 Total Bilirubin 0.3 (0.2-1.0) mg/dl AST 34 (13-39) U/L ALT 55 H (7-52) U/L Alkaline Phosphatase 86 (34-104) U/L Albumin 3.4 (3.4-5.0) gm/dl Medications Administered Home Medications Medication Instructions Recorded Confirmed Last Taken Zinc Liquid 1 dose PO DAILY 12/01/23 12/01/23 12/01/23 acetaminophen 500 mg tablet 500 mg PO Q6H PRN PAIN/FEVER 12/01/23 12/01/23 12/01/23 16:00 (Tylenol Extra Strength) ibuprofen 200 mg tablet 400 mg PO Q6H PRN PAIN/FEVER 12/01/23 12/01/23 12/01/23 08:00 vitamin B complex 1 tab PO DAILY 12/01/23 12/01/23 12/01/23 Active Medications Generic Name Dose Route Start Last Admin Trade Name Mary Lou PRN Reason Stop Dose Admin Acetaminophen 500 mg 12/01/23 20:03 12/03/23 09:06 Acetaminophen 500 Mg Tab PO 12/31/23 20:02 500 mg Q6H PRN Administration fever/pain Enoxaparin Sodium 40 mg 12/02/23 09:00 12/03/23 08:05 Enoxaparin Inj 40 Mg/0.4 Ml Syr SQ 01/01/24 08:59 Not Given QAM MARZENA Piperacillin Sod/Tazobactam 100 mls @ 25 mls/hr 12/02/23 16:00 12/03/23 08:04 Sod 4.5 gm/ Dextrose IV 12/16/23 15:59 25 mls/hr Q8H MARZENA Administration Protocol Ketorolac Tromethamine 15 mg 12/01/23 22:21 12/02/23 05:39 Ketorolac Tromethamine 15 Mg/Ml Vial IV 12/06/23 22:20 15 mg Q6H PRN Administration Pain Lorazepam 0.25 mg 12/02/23 07:25 12/02/23 20:37 Lorazepam 0.5 Mg Tab PO 01/01/24 07:24 0.25 mg HS PRN Administration insomnia Melatonin 6 mg 12/02/23 07:25 07/05/24 22:05 Melatonin 3 Mg Tab PO 01/01/24 01:46 6 mg HS PRN Administration Sleep Vitamin B Complex 1 tab 12/02/23 09:00 12/03/23 08:05 Vitamin B Complex Tab PO 01/01/24 08:59 1 tab DAILY MARZENA Administration
[2023-12-03] MEDS: FERROUS SULFATE 325 MG TAB PO SCH (11:26)
[2023-12-03] MEDS: FOLIC ACID 400 MCG TAB PO SCH (11:26)
[2023-12-03] MEDS: ZOLPIDEM TARTRATE 5 MG TAB PO PRN (21:12)
[2023-12-04 06:33] LABS: Hematocrit (blood only) 35.7 % (37.0-47.0); Hemoglobin 12.1 g/dl (12.0-16.0); Mean Corpuscular Hemoglobin 29.7 pg (25.0-34.0); Mean Corpuscular Hgb Conc 33.9 g/dL (32.0-36.0); Mean Corpuscular Volume 87.7 fL (80.0-100.0); Mean Platelet Volume 8.9 fL (9.4-12.4); Platelet Count 286 K/uL (130-400); RDW Coefficient of Variation 13.4 % (11.5-14.5); RDW Standard Deviation 43.5 fL (36.4-46.3); Red Blood Count 4.07 M/uL (4.20-5.40); White Blood Count 10.73 K/ul (4.8-10.8)
[2023-12-04 06:45] LABS: BUN Creatinine Ratio 10.9 (10-20); Calcium 8.9 mg/dl (8.6-10.3); Creatinine Clr Calc Pharmacy 110.1 ml/min; Est GFR (African American) 138.8 ml/min; Est GFR (Non-African American) 119.7 ml/min; Magnesium 2.2 mg/dl (1.7-2.4); Phosphorus 3.8 mg/dl (2.5-4.9); Potassium 3.7 mmol/L (3.5-5.1)
[2023-12-04] MEDS: CIPROFLOXACIN 500 MG TAB PO SCH (09:26)
--- NOTE | 2023-12-04 12:42 | Discharge Summary ---
Discharge Summary Date of Service December 04, 2023 Principal Dx & Hospital Course #1 = Principal Diagnosis (1) Severe sepsis: Ms Richard is a 28 year old woman with no significant medical history was admitted 12/01 for pyelonephritis. Patient noted to have uncomplicated GNB likely 2/2 pyelonephritis. Patient's course without complications--sepsis resolved, heart rates improvement, leukocytosis resolved. On day of discharge, patient denies any acute concerns and reports resolution of flank pain and dysuria. #Sepsis #Acute pyelonephritis #Uncomplicated GNB bacteremia iso complicated UTI CT AB with mild hypdronephrosis, renal function stable UA culture 11/30 pending Blood Cultures 08/31 + ecoli iso complicated UTI BCID2: Ecoli and enterobacterales -empiric with Zosyn at this time iso sepsis -Narrow based upon sensitivities -d/c with Cipro 500mg BID #Iron deficiency #Folate deficiency -discussed replacement and daily MVI use #Demand ischemia *resolved iso sepsis #Palpitations iso sepsis CTM on tele, treat as above #Prediabetes 5.7%, discuss lifestyle modifications #Transaminitis resolving, likely 2/2 sepsis #Insomnia trial zolpidem upon discharge Notes For Next Care Provider Medication Changes From Visit Iron supplement Folate supplement Ciprofloxacin BID Trial of zolpidem for intermittent insomnia Admission HPI Per Admitting Provider History obtained from patient and records. No significant medical history. Patient experienced right-sided flank discomfort today followed by dysuria. Dizziness described as lightheadedness. Palpitations with SOB. Denies chest pain or cough symptoms. EMS called to patient's home. Patient noted to be in SVT, heart rate 170s. Heart rate improved to 140s after adenosine administration. No prior SVT episodes as per patient. Patient brought to the ER for evaluation. Ceftriaxone administered at the ER. 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 Exam Per Admitting Provider GENERAL: uncomfortable, no respiratory distress SKIN: Normal color, warm HEENT: [place] palpebral conjunctivae, no ptosis, dry buccal mucosa NECK : Supple, no tenderness CHEST : CTA, no tenderness HEART : RRR, no obvious murmurs ABDOMEN: Some distention, right-sided flank tenderness EXTREMITIES : No LE swelling/tenderness, no other conspicuous deformities noted NEUROLOGIC : Coherent, no facial asymmetry, no other gross focality Discharge Exam Constitutional WD/WN, vitals as above Respiratory normal respiratory effort, lungs clear to auscultation Cardiovascular RRR, no murmur, no edema Gastrointestinal (Abdomen) normal bowel sounds, soft, nontender, no hepatosplenomegaly no CVA tenderness Updated Medication List Medication Instructions Recorded Confirmed Type Zinc Liquid 1 dose PO DAILY 12/01/23 12/01/23 History acetaminophen 500 mg tablet 500 mg PO Q6H PRN PAIN/FEVER 12/01/23 12/01/23 History (Tylenol Extra Strength) ibuprofen 200 mg tablet 400 mg PO Q6H PRN PAIN/FEVER 12/01/23 12/01/23 History vitamin B complex 1 tab PO DAILY 12/01/23 12/01/23 History ciprofloxacin HCl 500 mg tablet 500 mg PO BID #16 tabs 12/04/23 Rx ferrous sulfate 325 mg (65 mg 325 mg PO QAM #30 tabs 12/04/23 Rx iron) tablet,delayed release folic acid 400 mcg tablet 400 mcg PO QAM #30 tabs 12/04/23 Rx zolpidem 5 mg tablet 5 mg PO HS PRN insomnia #15 tabs 12/04/23 Rx Hospital Stay Data Consultations 12/01/23 19:17 ED Decision to Admit Stat 12/02/23 00:31 Consult Urology Routine 12/02/23 01:44 Consult Cardiology Routine Diagnostic Imagining Performed 12/01/23 18:27 CT angio chest PE protocol Stat 12/01/23 19:59 CT Abd and Pelvis [CT abd pelvis wo con] Stat Pending Results Patient Have Any Pending Studies at Discharge: No Discharge Instructions Given to Patient (Per Discharging Provider) You have acute pyelonephritis and you responded to antibiotics. Please continue the course of antibiotics until complete -Ciprofloxacin 500mg two times a day, your next dose is this evening You were also noted to have iron and folate deficiency. It is recommended that you continue a daily supplement. Total Time Total Time Spent Total Time Spent (In Minutes): 45
[2023-12-06 12:09] LABS: Ehrlichia chaff DNA Bld Negative (Negative)
[2023-12-08 20:22] LABS: Babesia microti DNA Not Detected (Not Detected); Q Fever IgG, Phase I NEGATIVE; Q Fever Phase I IgM Antibody NEGATIVE; Q Fever Phase II IgG Antibody NEGATIVE; Q Fever Phase II IgM Antibody NEGATIVE; R. typhi IgG Ab NOT DETECTED; R. typhi IgM Ab NOT DETECTED; RMSF IgG Ab NOT DETECTED; RMSF IgM Ab NOT DETECTED
== END 2023-12-04 11:38 | disposition home or self-care (01) | DRG 872 ==
LOC: ED 17:31 → INTOOBSV 12-02 00:27 → 2S 12-02 00:27